=== PATIENT | female | born 1955 | race Caucasian/White ===

== ENCOUNTER → 2020-01-06 10:03 | Outpatient (BNVA) | payer BC, SELFPAY | PROVIDERS: Family Provider Nurse Practitioner Family; PCP Nurse Practitioner Family; Visit Provider Registered Nurse | DX: Z11.59 Encounter for screening for other viral diseases (principal) | CPT/HCPCS: 87635 ==

== ENCOUNTER → 2020-07-03 11:42 | Outpatient (BNVA) | payer OTHER, SELFPAY | PROVIDERS: Family Provider Nurse Practitioner Family; PCP Nurse Practitioner Family; Visit Provider Registered Nurse | DX: J18.9 Pneumonia, unspecified organism (principal); J20.8 Acute bronchitis due to other specified organisms; M79.674 Pain in right toe(s) | CPT/HCPCS: 85025 ==

== ENCOUNTER → 2021-02-26 11:20 | Outpatient (BNVA) | payer OTHER, SELFPAY | PROVIDERS: Family Provider Nurse Practitioner Family; PCP Nurse Practitioner Family; Visit Provider Registered Nurse | DX: Z00.00 Encounter for general adult medical examination without abnormal findings (principal); I10 Essential (primary) hypertension; E66.01 Morbid (severe) obesity due to excess calories | CPT/HCPCS: 80053; 80061; 85025 ==

== ENCOUNTER → 2021-02-28 08:18 | Outpatient (BNVA) | payer OTHER, SELFPAY | PROVIDERS: Family Provider Nurse Practitioner Family; PCP Nurse Practitioner Family; Visit Provider Registered Nurse | DX: R89.9 Unspecified abnormal finding in specimens from other organs, systems and tissues (principal) | CPT/HCPCS: 36416; 82962 ==

== ENCOUNTER → 2021-04-02 08:24 | Outpatient (BNVA) | payer OTHER, SELFPAY | PROVIDERS: Family Provider Nurse Practitioner Family; PCP Nurse Practitioner Family; Visit Provider Surgery | DX: Z20.822 Contact with and (suspected) exposure to COVID-19 (principal); K57.92 Diverticulitis of intestine, part unspecified, without perforation or abscess without bleeding; Z98.890 Other specified postprocedural states | CPT/HCPCS: 87635 ==

== ENCOUNTER 2021-04-05 06:55 | Day surgery (SDC) | payer OTHER, SELFPAY ==
[2021-04-02 13:27] VITALS: BMI 42.0
--- NOTE | 2021-04-05 07:18 | P.ANESASSM_ITS ---
Pre-Anesthetic Assessment Pre-Anesthetic Assessment: Height/Weight: Height 1.57 m Weight 104.326 kg Preop Diagnosis: Screening colonoscopy Proposed Procedure: Operation Date: 04/05/21 07:45 Proposed Procedures p Colonoscop 58585 k57.92(Not Applicable) - Nick Hernandez MD Familial anesthetic complications: None Was Beta Zhane taken within 24 hours: N/A Was Clonidine taken within 24 hours: N/A Social: Social History: No alcohol and No tobacco Exam: Pre-Anes Outpt Exam: alert, oriented x 3, clear to auscultation bilatera lly and regular rate & rhythm Airway: Submandibular: WNL Cervical ROM: WNL MP: 3 Dentition: False History/ROS: No significant history except as noted Pulmonary: Pulmonary: SAVGAE CV/HEM: CV/HEM: None reported Comments: METS = 4 : : None reported Hepatic: Hepatic: None reported GI: GI: None reported Metabolic: Metabolic: Morbid obesity Musc/skel: Musc/skel: None reported Neuropsych: Neuropsych: None reported Anesthetic Plan: ASA status: 2 Anesthesia: General and MAC Other: We discussed MAC anesthesia including the spectrum of anesthesia w/ possible intraop recall of stimuli discomfort/pain. Patient agrees to proceed with MAC anesthesia, all questions answered. Risk of > 500 ml blood loss (7ml/kg in children): No PFSH Anesthesia PFSH: Medical History (Updated 02/26/21 @ 13:03 by ARLET Pascal) Chronic bilateral low back pain Depression Essential hypertension Surgical History History of colon surgery 2009 Hx of appendectomy Hx of hysterectomy 2009 Hx of tonsillectomy Family History Other Cancer Diabetes Data Anesthesia Cardiac Studies: No Data to Display
[2021-04-05 07:29] VITALS: BP 137/84; PULSE 99; RESP 18; TEMP 36.3; O2SAT 94
--- NOTE | 2021-04-05 07:37 | P.HP_ITS ---
Same Day Surgery H&P Indication for Procedure/HPI DATE OF PROCEDURE: April 05, 2021 CHIEF COMPLAINT/INDICATIONFOR SURGICAL PROCEDURE: Screening PREOP DIAGNOSIS: Screening colonoscopy PLANNED PROCEDRUE: Operation Date: 04/05/21 07:45 Proposed Procedures p Colonoscop 31309 k57.92(Not Applicable) - Nick Hernandez MD 01/25/2021 Ms. Rubio is a pleasant 65 years old female patient with a current weight of 237 pounds and BMI 45. Patient is referred to my practice for screening colonoscopy. 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 Last colonoscopy was done back in 2009 and there are no history of colon cancer or polyps or bleeding per rectum. Patient reports to me that before 2 weeks she was diagnosed clinically by an acute episode of diverticulitis and was placed on antibiotics. Per her primary care provider Also patient reports to me that she had hernia developed after her laparotomy. And she would like it fixed at some point. Interim history 04/05/2021 Patient comes today for screening colonoscopy ROS All systems have been reviewed negative except as per the above or per problem list Medications/Allergies* Allergies/Adverse Reactions Allergy/AdvReac Type Severity Reaction Status Date / Time codeine Allergy Unknown Verified 04/05/21 07:38 doxycycline Allergy Unknown Verified 04/05/21 07:38 Pertinent History/Comorbid Conditions* Medical History (Updated 02/26/21 @ 13:03 by ARLET Pascal) Chronic bilateral low back pain Depression Essential hypertension Surgical History (Updated 01/08/21 @ 15:14 by ARLET Pascal) History of colon surgery 2009 Hx of appendectomy Hx of hysterectomy 2010 Hx of tonsillectomy Family History (Updated 10/12/19 @ 09:59 by Kyle Farley LPN) Diabetes Cancer Pertinent Exam Findings alert, oriented x 3, regular rate & rhythm and procedure specific exam findings (Abdominal examination nontender nondistended soft) Pertinent Data PERTINENT DATA: Midline scar with stable ventral incisional hernia Recommendations Surgery/Procedure today Other Plans: Plan of care; After thorough history and physical examination and reviewing the chart, plan to perform screening colonoscopy. I discussed with the patient in details the risks,benefits,alternatives and indications.The risk of aspiration, bleeding, soft tissue injury, perforation of the colon and other potential concomitant complications were explained to the patient in details,also the potential need for Laproscoy/Laparotomy to repair any related complications including but not limited to colectomy and or Closotomy.The patient understood this well and did agree to proceed. Rationale was carefully and clearly discussed with the patient.Appropriate informed consent have been reviewed and signed All questions have been answered and all concerns have been addressed to patient's satisfaction. Verbal and written Instructions were given to the patient for colonoscopy prep Coding Level of Care Code Acute Chief Nuclear Medicine Technologist for Jose F Mtz
[2021-04-05] MEDS: sodium chloride 0.9% 1,000 ML 30 ML IV (07:42)
[2021-04-05 08:21] VITALS: BP 128/85; PULSE 92; RESP 18; TEMP 37.1; O2SAT 93
[2021-04-05 08:30] VITALS: BP 123/73; PULSE 89; RESP 16; O2SAT 91
== END 2021-04-05 08:46 | disposition home or self-care (01) ==
PROVIDERS: PCP Nurse Practitioner Family; Visit Provider Surgery
PROC: 0DJD8ZZ Inspection of Lower Intestinal Tract, Via Natural or Artificial Opening Endoscopic (ICD-10-PCS; CPT 45378; principal; 2021-04-05 07:45)
DX: Z12.11 Encounter for screening for malignant neoplasm of colon (principal); K57.30 Diverticulosis of large intestine without perforation or abscess without bleeding; F32.9 Major depressive disorder, single episode, unspecified; I10 Essential (primary) hypertension; Z83.3 Family history of diabetes mellitus; E66.01 Morbid (severe) obesity due to excess calories; Z68.41 Body mass index [BMI] 40.0-44.9, adult
CPT/HCPCS: 45378; J2704; J7030

== ENCOUNTER 2021-05-22 08:12 | Outpatient (CLI) | payer OTHER, SELFPAY ==
--- NOTE | 2021-05-22 08:00 | MM_ITS ---
WS: [id number] BILATERAL DIGITAL SCREENING MAMMOGRAPHY WITH CAD CLINICAL INFORMATION: Z12.31 - Encounter for screening mammogram for malignant ... HISTORY: Screening mammogram. No current complaints. COMPARISON: None. TECHNIQUE: Bilateral CC and MLO views. FINDINGS: Scattered fibroglandular densities bilaterally. Nonspecific bilaterally asymmetric densities along th e posterior nipple line RIGHT breast measuring 9 mm and near the areola LEFT breast measuring 9 mm. L eft-sided lesion best seen on the cc view. Recommend further evaluation with diagnostic mammography a nd ultrasound. Outside comparisons would be helpful in comparison. MM/[place] [id number] IMPRESSION: BI-RADS: 0-Incomplete: Need additional imaging evaluation FOLLOW UP: Need Additional Imaging Recommend bilateral diagnostic mammography and ultrasound for further evaluatio n.
== END 2021-05-22 08:13 | disposition home or self-care (01) ==
LOC: RADSHAW 08:17
PROVIDERS: PCP Registered Nurse; Visit Provider Registered Nurse
DX: Z12.31 Encounter for screening mammogram for malignant neoplasm of breast (principal)
CPT/HCPCS: 77067

== ENCOUNTER → 2021-12-18 09:46 | Outpatient (BNVA) | payer OTHER, SELFPAY | PROVIDERS: PCP Registered Nurse; Visit Provider Student in an Organized Health Care Education/Training Program | DX: M94.262 Chondromalacia, left knee (principal) | CPT/HCPCS: 73560; 73565 ==

== ENCOUNTER → 2022-03-26 08:52 | Outpatient (BNVA) | payer MEDICARE, SELFPAY | PROVIDERS: PCP Registered Nurse; Visit Provider Registered Nurse | DX: I10 Essential (primary) hypertension (principal); R60.0 Localized edema; R73.01 Impaired fasting glucose | CPT/HCPCS: 80053; 83036; 83880; 85025 ==

== ENCOUNTER 2022-04-11 09:39 | Emergency (ER) | payer MEDICARE, SELFPAY ==
[2022-04-11 09:49] VITALS: BP 147/75; PULSE 95; TEMP 36.8; O2SAT 89; BMI 43.1
--- NOTE | 2022-04-11 09:54 | XRR_ITS ---
PROCEDURE INFORMATION: Exam: XR Chest Exam date and time: 04/11/2022 10:25 AM Age: 66 years old Clinical indication: Shortness of breath TECHNIQUE: Imaging protocol: Radiologic exam of the chest. Views: 2 views. COMPARISON: No relevant prior studies available. FINDINGS: Lungs: Mildly increased ground-glass density in the left lung base. The remainder of the lung parenchyma is clear. Pleural spaces: No pneumothorax. No pleural effusion. Heart/Mediastinum: The cardiomediastinal silhouette is within normal limits. Bones/joints: Unremarkable. XR/XR chest 2V* [id number] IMPRESSION: Mildly increased ground-glass density in the left lung base. Findings could be consistent with mild airspace disease, atelectasis, or prominent pericardiac fat. The remainder of the lung parenchyma is clear.
--- NOTE | 2022-04-11 10:03 | ECG_ITS ---
[facility] Test Date: 2022-04-11 Pat Name: Millicent Rubio Department: Room: Gender: Female Insulation Estimator: : 1955 Requested By: Roxana Frederick Order Number: [id number] Gray MD: Jim Dupree M.D. Measurements Intervals [place] Rate: 92 P: 55 ID: [id number] QRS: 60 QRSD: 90 T: 60 QT: 327 QTc: 405 Interpretive Statements SINUS RHYTHM LOW QRS VOLTAGE IN PRECORDIAL LEADS [QRS DEFLECTION < 1.0 mV IN CHEST LEADS] No previous ECG available for comparison Electronically Signed On 04-11-2022 14:42:32 FREIGHT FLOW SALES LEADER by Jim Dupree M.D. [id number]
[2022-04-11 10:18] LABS: Basophils # 0.1 10^3/uL (0.0-0.1); Basophils % 0.5 %; Eosinophils # 0.2 10^3/uL (0.0-0.8); Eosinophils % 2.4 %; Hematocrit 44.4 % (37.0-47.0); Hemoglobin 13.7 g/dL (11.5-15.3); Lymphocytes # 1.5 10^3/uL (0.8-4.8); Lymphocytes % 14.7 %; Mean Corpuscular HGB Conc 30.9 g/dL (30.0-36.0); Mean Corpuscular Hemoglobin 30.4 pg (28.0-34.0); Mean Corpuscular Volume 98.7 fl (81-99); Monocytes # 0.6 10^3/uL (0.2-0.9); Monocytes % 5.8 %; Neutrophils # 7.56 10^3/uL (1.8-7.7); Neutrophils % 76.3 %; Nucleated Red Blood Cells % 0 %; Platelet Count 348 10^3/cmm (130-400); Red Cell Distribution Width 13.2 % (12.1-15.1); White Blood Count 9.9 10^3/uL (4.0-10.0)
[2022-04-11 10:50] VITALS: BP 143/65; PULSE 93; RESP 18; O2SAT 92
[2022-04-11 10:51] LABS: Alanine Aminotransferase 28 U/L (0-33); Albumin Level 4.4 g/dL (3.5-5.2); Alkaline Phosphatase 89 U/L (35-105); Aspartate Amino Transferase 23 U/L (0-32); Blood Urea Nitrogen 15 mg/dL (8-23); Calcium 9.3 mg/dL (8.5-10.5); Carbon Dioxide 29 mmol/L (22-29); Chloride 100 mmol/L (98-107); Globulin 3.1 g/dL (1.3-4.6); Glomerular Filtration Rate 124.2 mL/min (90-130); Glucose 102 mg/dL (65-115); NT Pro B Type Natriuretic Pept 28 pg/mL (0-125); Osmolality Calculated 289 mOsm/kg (285-295); Sodium 139 mmol/L (136-145); Total Bilirubin 0.3 mg/dL (0.15-1.2); Total Protein 7.5 g/dL (6.6-8.7)
--- NOTE | 2022-04-11 10:59 | ED_ITS ---
HPI - General Adult General: Chief complaint: General Medical Stated complaint: swollen legs Time Seen by Provider: 04/11/22 09:54 Source: patient History of Present Illness: 66 yo female presents emergency room complaining of shortness of breath. She also is complaining of a headache. She denies any chest pain no fever sweats or chills. No abdominal pain no vomiting. Onset (ago): minute(s) Location: head Severity: mild Quality: burning Associated symptoms: Deny chest pain, dyspnea, malaise, nausea, rash or vomiting Review of Systems Const: Denies: fever(s), chills, body aches, change in appetite, fatigue or malaise ENMT: Denies: throat pain, ear or mastoid pain, nasal discharge or nasal congestion Card: Denies: chest pain, edema, dyspnea on exertion or orthopnea Resp: Denies: dyspnea, productive cough or non-productive cough GI: Denies: abdominal pain, nausea, vomiting, hematemesis, coffee ground emesis, diarrhea, constipation, bloating, hematochezia or melena : Denies: flank pain, difficulty voiding, dysuria, urinary frequency or urinary urgency Skin/Breast: Denies: rash or pruritus PFSH ED PFSH: Medical History Chondromalacia, left knee Chronic bilateral low back pain Chronic diarrhea Depression Essential hypertension Surgical History History of colon surgery 2009 Hx of appendectomy Hx of hysterectomy 2010 Hx of tonsillectomy Family History Other Cancer Diabetes Social History Smoking and tobacco status: former smoker Alcohol intake: never Adopted: No Caregiver/support person: No Lives independently: No Sexually active: Yes Current gender identity: Female Physical Exam Const: GENERAL APPEARANCE: cooperative and comfortable ORIENTATION/CONSCIOUSNESS: Yes awake, Yes oriented to person, Yes oriented to place and Yes oriented to time HENMT: COMMON NORMALS: normocephalic, atraumatic and hearing grossly normal bilaterally HEAD & SCALP: normocephalic and atraumatic Resp: COMMON NORMALS: normal respiratory effort, No retractions, No use of a ccessory muscles and clear to auscultation bilaterally AUSCULTATION: clear to auscultation bilaterally Cardio: COMMON NORMALS: regular rate, regular rhythm and No murmurs present (Cardio) RATE: regular rate RHYTHM: regular rhythm GI: COMMON NORMALS: Soft to palpation and No hepatosplenomegaly present AUSCULTATION: Yes normoactive bowel sounds PALPATION: Yes Soft to palpation, No Tenderness to palpation present (GI), No Guarding due to palpation present (GI) and Yes No hepatosplenomegaly present Extremity: COMMON NORMALS: normal to inspection and capillary refill normal GENERAL: Yes edema Neuro: SENSORIUM/ORIENTATION: Yes oriented to person, Yes oriented to place and Yes oriented to time Skin: COMMON NORMALS: no rashes or lesions noted GENERAL SKIN EXAM: no rashes or lesions noted Course Vital Signs: Vital signs: Vital Signs Temperature 98.2 F 04/11/22 09:49 Pulse Rate 91 04/11/22 11:57 Respiratory Rate 16 04/11/22 11:57 Blood Pressure 147/89 04/11/22 11:57 Pulse Oximetry 94 04/11/22 11:57 Oxygen Delivery Me thod 04/11/22 09:49 MDM - General Adult Medical Decision Making Improved with diuresis will increase Lasix 80 mg daily double up on potassium during that time as well. Recommend follow-up with primary care within the next 3 to 5 days. Also need follow-up chest x-ray. Finally discussed with the patient that we noted that when she dozed off your oxygen saturations decreased to improved immediately when she woke. Suspect she does have sleep apnea and recommend that she follow-up with have testing done is that we will affect her other conditions as well. Lab Data 04/11/22 10:08 04/11/22 10:08 Radiology Impressions Chest X-Ray 04/11/22 09:54 IMPRESSION: Mildly increased ground-glass density in the left lung base. Findings could be consistent with mild airspace disease, atelectasis, or prominent pericardiac fat. The remainder of the lung parenchyma is clear. Laboratory Results WBC 9.9 10^3/uL (4.0-10.0) 04/11/22 10:08 RBC 4.50 10^6/uL (4.1-5.3) 04/11/22 10:08 Hgb 13.7 g/dL (11.5-15.3) 04/11/22 10:08 Hct 44.4 % (37.0-47.0) 04/11/22 10:08 MCV 98.7 fl (81-99) 04/11/22 10:08 MCH 30.4 pg (28.0-34.0) 04/11/22 10:08 MCHC 30.9 g/dL (30.0-36.0) 04/11/22 10:08 RDW 13.2 % (12.1-15.1) 04/11/22 10:08 Plt Count 348 10^3/cmm (130-400) 04/11/22 10:08 MPV 10.0 fL (7.4-10.4) 04/11/22 10:08 Neut % (Auto) 76.3 % 04/11/22 10:08 Lymph % (Auto) 14.7 % 04/11/22 10:08 [place] % (Auto) 5.8 % 04/11/22 10:08 Eos % (Auto) 2.4 % 04/11/22 10:08 Baso % (Auto) 0.5 % 04/11/22 10:08 Neut # (Auto) 7.56 10^3/uL (1.8-7.7) 04/11/22 10:08 Lymph # (Auto) 1.5 10^3/uL (0.8-4.8) 04/11/22 10:08 [place] # (Auto) 0.6 10^3/uL (0.2-0.9) 04/11/22 10:08 Eos # (Auto) 0.2 10^3/uL (0.0-0.8) 04/11/22 10:08 Baso # (Auto) 0.1 10^3/uL (0.0-0.1) 04/11/22 10:08 Nucleated RBC % (auto) 0 % 04/11/22 10:08 Nucleated RBCs # 0.0 /100WBC 04/11/22 10:08 Sodium 139 mmol/L (136-145) 04/11/22 10:08 Potassium 4.4 mmol/L (3.5-5.1) 04/11/22 10:08 Chloride 100 mmol/L (98-107) 04/11/22 10:08 Carbon Dioxide 29 mmol/L (22-29) 04/11/22 10:08 Anion Gap 14.4 (5-19) 04/11/22 10:08 BUN 15 mg/dL (8-23) 04/11/22 10:08 Creatinine 0.5 mg/dL (0.5-0.9) 04/11/22 10:08 GFR Calculation 124.2 mL/min (90-130) 04/11/22 10:08 Glucose 102 mg/dL (65-115) 04/11/22 10:08 Calculated Osmolality 289 mOsm/kg (285-295) 04/11/22 10:08 Calcium 9.3 mg/dL (8.5-10.5) 04/11/22 10:08 Total Bilirubin 0.3 mg/dL (0.15-1.2) 04/11/22 10:08 AST 23 U/L (0-32) 04/11/22 10:08 ALT 28 U/L (0-33) 04/11/22 10:08 Alkaline Phosphatase 89 U/L (35-105) 04/11/22 10:08 Troponin T Gen 5 ng/L 6 ng/L (0-10) 04/11/22 10:08 NT-Pro-B Natriuret Pep 28 pg/mL (0-125) 04/11/22 10:08 Total Protein 7.5 g/dL (6.6-8.7) 04/11/22 10:08 Albumin 4.4 g/dL (3.5-5.2) 04/11/22 10:08 Globulin 3.1 g/dL (1.3-4.6) 04/11/22 10:08 Discharge Plan Discharge Patient Disposition: Home Clinical Impression: Leg edema Condition: Stable Prescriptions: Discontinued furosemide 40 mg tablet 40 mg PO QAM No Action albuterol sulfate [ProAir HFA] 90 mcg/actuation HFA aerosol inhaler 1 inh INHALATION QID PRN (Reason: shortness of breath or wheezing) Qty: 1 1RF wfjvjgxnei-eiazjmufhsfid-qxoa [Esgic] 50-325-40 mg capsule 1 cap PO DAILY PRN (Reason: pain) 30 Days Qty: 20 2RF Rx Instructions: will not need until on or after 04/17 tramadol 50 mg tablet 50 mg PO Q8H PRN (Reason: pain) 30 Days Qty: 40 1RF furosemide 40 mg tablet 40 mg PO QAM Advair HFA 115-21 mcg/actuation HFA aerosol inhaler 2 puff inhalation BID Qty: 12 0RF multivitamin Tablet 1 tab PO DAILY PRN (Reason: unknown) Vitamin D3 25 mcg (1,000 unit) Capsule 2,000 unit PO DAILY magnesium oxide 400 mg magnesium Tablet 400 mg PO DAILY potassium chloride 10 mEq tablet extended release 10 meq PO QAM omeprazole 40 mg capsule,delayed release(DR/EC) 40 mg PO DAILY PRN (Reason: Heartburn) telmisartan 40 mg tablet 40 mg PO QAM sertraline 25 mg tablet 25 mg PO BEDTIME Discharge Orders: Discharge ED (Routine); Ordered 04/11/22 Ordered By: Gianfranco Hayward Referrals: Mi Garcia, INFORMATICS PHYSICIAN [Primary Care Provider] - Discharge Diet: Usual diet Discharge Activity: Increase activity as tolerated Patient Instructions: Opioid Safety, Pain Management Activity Restrictions/Additional Instructions: You were seen today for chronic swelling in your legs. Recommend that you increase your Lasix to 80 mg daily for the next 3 days follow-up with your primary care doctor to recheck kidney function and electrolytes in 4 to 5 days. Increase your potassium to 1 tablet twice daily during those 3 days of the increase Lasix. Chest x-ray today showed some mild increased markings at the base of the left lung. These are of uncertain significance and we will refer you to the rn clinical review to further evaluate. Would also recommend that you discuss having sleep apnea testing done with your primary care doctor if you have not had this done previously. Coding Level of Care Code ED Molded Candles Wicker for Jose F Mtz
[2022-04-11 11:00] VITALS: BP 148/81; PULSE 96; O2SAT 93
[2022-04-11 11:11] LABS: Anion Gap 14.4 (5-19); Potassium 4.4 mmol/L (3.5-5.1)
[2022-04-11 11:27] LABS: Troponin T (5th) Once 6 ng/L (0-10)
[2022-04-11 11:50] VITALS: BP 143/56; PULSE 87; RESP 16; O2SAT 96
[2022-04-11 11:57] VITALS: BP 147/89; PULSE 91; RESP 16; O2SAT 94
--- NOTE | 2022-04-11 14:00 | DCPLANNER ---
Addendum entered by Mirela Plaza 07/24/22 11:24: Patient had a follow up appointment scheduled with Dr. Shultz at pulmonology - patient did attend appointment. Addendum entered by Mirela Plaza 04/18/22 13:43: Patient has a follow up appointment scheduled for Friday, July 22, 2022 at 11:[address] Bangura, pulmonology. Clinic will call patient with appointment information. Original Note: environmental field office manager had message to schedule a follow up appointment for patient with pulmonology. environmental field office manager sent patients information to the front office staff at [facility]. Patients information will be printed and reviewed. Clinic will call patient with appointment information.
== END 2022-04-11 12:00 | disposition home or self-care (01) ==
PROVIDERS: Nurse Practitioner Family; Emergency Provider Family Medicine; PCP Registered Nurse
DX: R60.0 Localized edema (principal); I10 Essential (primary) hypertension; Z87.891 Personal history of nicotine dependence
CPT/HCPCS: 71046; 80053; 83880; 84484; 85025; 93005; 99285

== ENCOUNTER 2022-05-13 07:18 | Outpatient (CLI) | payer MEDICARE, SELFPAY ==
[2022-05-13] MEDS: iohexol 350 mg/mL 500 mL Btl (per mL) IV (07:33)
--- NOTE | 2022-05-13 08:00 | CT_ITS ---
WS: [id number] CT CHEST TECHNIQUE: Contrast enhanced CT of the chest with coronal and sagittal reformatted images. CLINICAL INFORMATION: R60.0 - Localized edema COMPARISON: None. DLP: 680.[address] scans at [facility] use at least one of these dose optimization techniques: automated e xposure control; mA and/or kV adjustment per patient size (includes targeted exams where dose is matc hed to clinical indication); or iterative reconstruction. FINDINGS: No acute pulmonary infiltrates. No focal pneumonia or pleural fluid. No mediastinal or jimmie r lymphadenopathy. Mild thoracic curve. Mild thoracic kyphosis. Hypertrophic changes thoracic spine. Normal caliber thoracic aorta. Normal caliber descending thoracic aorta. Aortic calcification. Slight ly prominent pulmonary arteries can be seen with pulmonary arterial hypertension. Mild cardiomegaly. No mediastinal or hilar lymphadenopathy. Normal GE junction. Partially visualized diffuse fatty infiltration liver. Partially visualized 12 mm LEFT renal cyst. Th ickening of the LEFT adrenal gland. RIGHT adrenal gland is normal. No axillary lymphadenopathy. CT/CT chest w con* [id number] IMPRESSION: 1. Previously described groundglass opacities in the LEFT lower lobe have reso lved. 2. No acute pulmonary infiltrates. No focal pneumonia or pleural fluid. 3. Mild chronic emphysematous changes. Mild cardiomegaly. 4. Diffuse fatty infiltration liver. 5. Partially visualized LEFT renal cyst measuring 12 mm.
== END 2022-05-13 07:19 | disposition home or self-care (01) ==
LOC: RAD 07:29
PROVIDERS: PCP Registered Nurse; Visit Provider Registered Nurse
DX: R60.0 Localized edema (principal); J98.4 Other disorders of lung; I51.7 Cardiomegaly; K76.0 Fatty (change of) liver, not elsewhere classified; N28.1 Cyst of kidney, acquired; J43.9 Emphysema, unspecified
CPT/HCPCS: 71260; Q9967

== ENCOUNTER → 2022-05-27 07:47 | Outpatient (BNVA) | payer MEDICARE, SELFPAY | PROVIDERS: PCP Registered Nurse; Visit Provider Student in an Organized Health Care Education/Training Program | DX: M94.262 Chondromalacia, left knee (principal); S83.412A Sprain of medial collateral ligament of left knee, initial encounter; X50.1XXA Overexertion from prolonged static or awkward postures, initial encounter | CPT/HCPCS: 20610; 99214; J3301 ==

== ENCOUNTER → 2022-05-27 09:29 | Outpatient (BNVA) | payer MEDICARE, SELFPAY | PROVIDERS: PCP Registered Nurse; Visit Provider Internal Medicine Pulmonary Disease | DX: Z68.41 Body mass index [BMI] 40.0-44.9, adult (principal); Z86.16 Personal history of COVID-19; R06.09 Other forms of dyspnea; R60.0 Localized edema; Z87.891 Personal history of nicotine dependence; E66.01 Morbid (severe) obesity due to excess calories; G47.30 Sleep apnea, unspecified; Z99.81 Dependence on supplemental oxygen | CPT/HCPCS: 99204 ==

== ENCOUNTER 2022-06-12 06:57 | Outpatient (CLI) | payer MEDICARE, SELFPAY ==
--- NOTE | 2022-06-12 07:15 | US_ITS ---
WS: [id number] RENAL ULTRASOUND REASON FOR EXAM: N28.1 - Cyst of kidney, acquired COMPARISON: None available. ORDER DATE: 06/12/2022 7:05 AM TECHNIQUE: Grayscale and Doppler ultrasound examination of the kidneys. FINDINGS: Right kidney: Right kidney measures 10.8 cm x 4.0 cm x 4.8 cm. 12.4 mm Left kidney: Left kidney measures 9.8 cm x 6.0 cm x 4.2 cm. 12.4 mm There is a 7 mm. Left renal cyst. Normal vascularity demonstrated within each kidney. Bladder decompressed. US/US renal BI* [id number] IMPRESSION: Small left renal cyst otherwise unremarkable.
== END 2022-06-12 06:58 | disposition home or self-care (01) ==
LOC: RAD 07:00
PROVIDERS: PCP Registered Nurse; Visit Provider Registered Nurse
DX: N28.1 Cyst of kidney, acquired (principal)
CPT/HCPCS: 76770

== ENCOUNTER 2022-06-19 08:03 | Outpatient (CLI) | payer MEDICARE, SELFPAY ==
[2022-06-19 08:21] VITALS: PULSE 77; RESP 18; O2SAT 98
[2022-06-19] MEDS: albuterol 2.5 mg/3 mL Neb INHALATION (08:21)
[2022-06-19 08:26] VITALS: PULSE 80
[2022-06-19 08:45] VITALS: BP 131/82; BP 135/82
== END 2022-06-19 08:04 | disposition home or self-care (01) ==
LOC: RT 08:07
PROVIDERS: PCP Registered Nurse; Visit Provider Internal Medicine Pulmonary Disease
DX: R06.00 Dyspnea, unspecified (principal); B94.8 Sequelae of other specified infectious and parasitic diseases
CPT/HCPCS: 94060; 94618; 94726; 94729; J7613

== ENCOUNTER 2022-06-25 09:49 | Outpatient (CLI) | payer MEDICARE, SELFPAY ==
--- NOTE | 2022-06-25 10:00 | USCV_ITS ---
Millicent Rubio Age: 67 Gender: F : 1955 Exam Date: 06/25/2022 10:03 Ordering Phys: Xander Bangura MD Technologist: Exam Location: [facility] – [place] Indication: pedal edema BP: 125 / 74 HR: 93 Rhythm: Sinus Technical Quality: Adequate MEASUREMENTS (Male / Female) Normal Values 2D ECHO LV Diastolic Diameter PLAX 4.7 cm 4.2 - 5.9 / 3.9 - 5.3 cm LV Systolic Diameter PLAX 2.8 cm IVS Diastolic Thickness 1.3 cm 0.6 - 1.0 / 0.6 - 0.9 cm IVS Systolic Thickness 1.7 cm LVPW Diastolic Thickness 1.0 cm 0.6 - 1.0 / 0.6 - 0.9 cm LVPW Systolic Thickness 1.7 cm LVOT Diameter 2.1 cm LV Ejection Fraction 2D Teich 70.4 % LV Ejection Fraction MOD 2C 70.8 % LV Ejection Fraction 2C AL 72.7 % LA Diameter 3.9 cm Aorta at Sinotubular Diameter 2.5 cm IVC Diameter 2.3 cm M-MODE Aortic Annulus Diameter 3.7 cm LA Ao Ratio MM 1.1 MV E Point Septal Separation 1.1 cm DOPPLER AV Peak Velocity 191.0 cm/s LVOT Peak Velocity 135.0 cm/s AV Area Cont Eq vti 2.3 cm squared AV Area Cont Eq pk 2.4 cm squared MV Area PHT 5.0 cm squared Mitral E to A Ratio 0.9 MV E' Velocity 42.5 cm/s Mitral E to MV E' Ratio 3.3 Mitral E to LV E' Lateral Ratio 6.0 Mitral E to LV E' Septal Ratio 2.3 TR Peak Velocity 283.3 cm/s TR Peak Gradient 32.1 mmHg TV Peak E Velocity 98.0 cm/s Right Atrial Pressure 3.0 mmHg Pulmonary Artery Systolic Pressu 35.1 mmHg RV Acceleration Time 0.1 s FINDINGS Left Ventricle Normal left ventricular size and systolic function, EF 75 %. No regional wall motion abnormalities. Grade I/IV diastolic dysfunction (abnormal relaxation filling pattern), normal to mildly elevated filling pressures. Right Ventricle The right ventricle is normal in size and function. Right Atrium The right atrium is normal in size. Left Atrium The left atrium is normal in size. Mitral Valve Thickening of the posterior mitral leaflet.mild mitral annular calcification. Mild mitral valve regurgitation. Aortic Valve Trace aortic valve regurgitation. Thickened aortic valve. Tricuspid Valve No gross abnormalities noted Pulmonic Valve No gross abnormalities noted Pericardium Normal pericardium without effusion. Aorta Normal ascending aorta dimension. IVC The inferior vena cava appears normal. CONCLUSIONS Normal left ventricular size and systolic function, EF 75 %. No regional wall motion abnormalities. Grade I/IV diastolic dysfunction (abnormal relaxation filling pattern), normal to mildly elevated filling pressures. Thickening of the posterior mitral leaflet.mild mitral annular calcification. Mild mitral valve regurgitation. Trace aortic valve regurgitation. Thickened aortic valve. There is no pericardial effusion. There are no intracardiac masses. Compared to the previous study from 06/21/2016, there may not be a significant change Dr Vincent Reinoso MD FACC (Electronically Signed) Final Date: 25 June 2022 22:22 S
== END 2022-06-25 09:50 | disposition home or self-care (01) ==
LOC: RAD 09:52
PROVIDERS: PCP Registered Nurse; Visit Provider Internal Medicine Pulmonary Disease
DX: R06.09 Other forms of dyspnea (principal); R60.0 Localized edema; Z87.891 Personal history of nicotine dependence; I51.9 Heart disease, unspecified; I34.81 Nonrheumatic mitral (valve) annulus calcification; I34.0 Nonrheumatic mitral (valve) insufficiency
CPT/HCPCS: 93306; 99204

== ENCOUNTER 2022-07-19 09:03 | Outpatient (CLI) | payer MEDICARE, SELFPAY ==
--- NOTE | 2022-07-19 09:30 | MR_ITS ---
WS: [id number] MRI LEFT KNEE HISTORY: Twisting injury 3 months ago. Medial pain. COMPARISON: None available. Anterior cruciate ligament: Intact. Posterior cruciate ligament: Intact. Medial collateral ligament: Increased fluid on both sides of the MCL. There is mild displacement of t he MCL from the joint line by an extruded meniscus. No complete MCL tear. Posterior lateral corner structures: Intact. Medial menisci: Partially extruded meniscus from the joint line.. There is also intrasubstance degene ration. Lateral meniscus: Intact. Normal signal, size and shape. Extensor mechanism: Normal quadriceps tendon. Mild multifocal patellar tendinopathy. Fluid and soft tissue: Moderate joint effusion. There is also additional small amount of edema surrou nding the knee. No Pak's cyst. Osseous and articular structures: Patellofemoral compartment: Very mild narrowing of the patellofemoral joint space. Mild thinning of t he cartilage at the patellar eminence and over the lateral and medial facets. No marrow edema. No fra cture. Incomplete visualization of the medial patellar retinaculum as it joins with the MCL. Medial compartment: Moderate narrowing of the medial compartment. Moderate chondromalacia. Significan t loss of cartilage and there is additional marrow edema involving the femoral condyle and tibial gianna teau. Lateral compartment: Very mild narrowing and mild thinning and fissuring of the cartilage. MR/MR knee LT wo con* [id number] IMPRESSION: 1. Moderate internal derangement involving the medial compartment. 2. Partial extrusion of the medial meniscus from the joint line with displacem ent of the MCL. Mild MCL sprain. 3. Marrow edema medial femoral condyle and tibial plateau with loss of cartila ge. 4. Suspect tear involving the free edge posterior horn medial meniscus along w ith intrasubstance degeneration. 5. Moderate-sized joint effusion. 6. Mild chondromalacia patella. 7. Suspect partial tear of the medial patellar retinaculum as it joins with the MCL. Discontinuous patellar retinaculum.
== END 2022-07-19 09:04 ==
PROVIDERS: PCP Registered Nurse; Visit Provider Student in an Organized Health Care Education/Training Program
DX: M25.362 Other instability, left knee (principal); M94.262 Chondromalacia, left knee
CPT/HCPCS: 73721; 99213

== ENCOUNTER → 2022-07-29 08:49 | Outpatient (BNVA) | payer MEDICARE, SELFPAY | PROVIDERS: PCP Registered Nurse; Visit Provider Student in an Organized Health Care Education/Training Program | DX: M94.262 Chondromalacia, left knee (principal); M23.205 Derangement of unspecified medial meniscus due to old tear or injury, unspecified knee | CPT/HCPCS: 36415; 73560; 73565; 80048; 85025; 99214 ==

== ENCOUNTER → 2022-07-31 13:03 | Outpatient (BNVA) | payer MEDICARE, SELFPAY | PROVIDERS: PCP Registered Nurse; Visit Provider Internal Medicine Pulmonary Disease | DX: Z01.811 Encounter for preprocedural respiratory examination (principal); R06.09 Other forms of dyspnea; Z87.891 Personal history of nicotine dependence; E66.01 Morbid (severe) obesity due to excess calories; R22.43 Localized swelling, mass and lump, lower limb, bilateral; G47.30 Sleep apnea, unspecified; Z99.81 Dependence on supplemental oxygen; Z68.41 Body mass index [BMI] 40.0-44.9, adult; Z86.16 Personal history of COVID-19 | CPT/HCPCS: 99214 ==

== ENCOUNTER 2022-08-06 08:20 | Day surgery (SDC) | payer MEDICARE, SELFPAY ==
[2022-08-05 10:30] VITALS: BMI 42.6
[2022-08-06] VITALS (9 sets, daily range): BP systolic 116–143; BP diastolic 59–92; PULSE 75–87; RESP 16–18; TEMP 36.2–36.7; O2SAT 92–99
[2022-08-06] MEDS: acetaminophen 1,000 MG/100 ML PIGGYBACK 400 MG IV (09:35)
[2022-08-06] MEDS: ketorolac 30 mg/mL INJ IVP (09:35)
[2022-08-06] MEDS: sodium chloride 0.9% 1,000 ML 30 ML IV (09:36)
--- NOTE | 2022-08-06 09:38 | ANES.PREANE2 ---
Pre-Anesthetic Assessment Height/Weight: Height 1.57 m Weight 105.687 kg Temp Pulse Resp BP Pulse Ox O2 Del Method 97.3 F L 87 18 136/92 92 Nasal Cannula 08/06/22 08:43 08/06/22 08:43 08/06/22 08:43 08/06/22 08:43 08/06/22 08:43 08/06/22 09:13 Preop Diagnosis: Left knee medial meniscus tear Operation Date: 08/06/22 10:05 Proposed Procedures p left knee diagnostic and surgical arthroscopy:67972, M23.205(Left) - Ravinder Hargrove, Familial anesthetic complications: None Was Beta Zhane taken within 24 hours: N/A Was Clonidine taken within 24 hours: N/A Last intake: Intake Last Liquid Date 08/05/22 Last Liquid Time 22:00 Last Solid Date 08/05/22 Last Solid Time 19:30 Social No alcohol and No tobacco Exam alert, oriented x 3, clear to auscultation bilaterally and regular rate & rhythm Airway Mallampati: Class III Dentition: false Pulmonary Chronic Obstructive Pulmonary Disease and Sleep Apnea restrictive lung disease (obesity) obesity hypoventilation - pulmonary physician recommending use of biPAP post extubation 2 L NC continuously CV/HEM Hypertension mild mvr and avr Metabolic Morbid Obesity Anesthetic Plan ASA status: 4 Anesthesia: General Other: patient declining nerve block Risk of > 500 ml blood loss (7ml/kg in children): No Medications/Allergies Home Medications Medication Instructions Recorded Confirmed Last Taken Type albuterol sulfate 90 mcg/actuation 1 inh inhalation QID PRN shortness 10/16/20 08/05/22 05/07/22 Rx aerosol inhaler (ProAir HFA) of breath or wheezing #1 ea coqrrapimp-ldqluwlizjqsh-zeeysqsl 1 cap PO DAILY PRN pain 30 days 03/26/22 08/05/22 08/03/22 Rx 50 mg-325 mg-40 mg capsule (Esgic) #20 caps cholecalciferol (vitamin D3) 25 2,000 unit PO DAILY 04/11/22 08/05/22 08/05/22 History mcg (1,000 unit) capsule (Vitamin D3) magnesium oxide 400 mg PO DAILY 04/11/22 08/05/22 08/05/22 History multivitamin 1 tab PO DAILY PRN unknown 04/11/22 08/05/22 07/30/22 History omeprazole 40 mg capsule,delayed 40 mg PO DAILY PRN Heartburn 04/11/22 08/05/22 08/02/22 History release potassium chloride 10 mEq 10 meq PO QAM 90 days #90 tabs 05/20/22 08/05/22 08/05/22 Rx tablet,extended release bumetanide 1 mg tablet 1 mg PO DAILY 90 days #90 tabs 06/13/22 08/05/22 08/05/22 Rx sertraline 25 mg tablet See Rx Instructions .Route 07/02/22 08/05/22 08/05/22 Rx .COMPLEX #90 tabs telmisartan 40 mg tablet See Rx Instructions .Route 07/02/22 08/05/22 08/05/22 Rx .COMPLEX #90 tabs tramadol 50 mg tablet 50 mg PO Q8H PRN pain 30 days #30 07/10/22 08/05/22 08/05/22 Rx tabs tiotropium 2.5 mcg-olodaterol 2.5 2 puff inhalation DAILY #4 grams 07/31/22 08/05/22 08/05/22 Rx mcg/actuation mist for inhalation (Stiolto Respimat) Allergies Allergy/AdvReac Type Severity Reaction Status Date / Time codeine Allergy Unknown Verified 08/05/22 10:26 doxycycline Allergy Unknown Verified 08/05/22 10:26 Current Medications Generic Name Dose Route Start Last Admin Trade Name Freq PRN Reason Stop Dose Admin Sodium Chloride 1,000 mls @ 30 mls/hr 08/06/22 08:45 08/06/22 09:36 Sodium Chloride 0.9% IV 08/07/22 08:44 30 mls/hr .Q24H LUIS MANUEL Administration PFSH Anesthesia Medical History Aortic valve regurgitation Chondromalacia, left knee Chronic bilateral low back pain Chronic diarrhea Depression Essential hypertension Mitral valve regurgitation Obesity, morbid, BMI 40.0-49.9 Observed sleep apnea On supplemental oxygen therapy Prediabetes Surgical History History of colon surgery 2009 Hx of appendectomy Hx of hysterectomy 2009 Hx of tonsillectomy Family History Other Cancer Diabetes Social History Smoking and tobacco status: former smoker Quit status (tobacco): has quit using tobacco Year quit tobacco: Mar 2009 Former quit date comment: 1ppd x 38 years Alcohol intake: never Substance/Drug Use: never Adopted: No Caregiver/support person: No Lives independently: No Sexually active: Yes Do you think of yourself as: Straight/Heterosexual Current gender identity: Female Data Anesthesia Cardiac Studies: Echocardiogram 06/25/22
--- NOTE | 2022-08-06 10:31 | W.PM.OPSUD ---
Surgery/Procedure H&P Update DATE OF PROCEDURE: August 06, 2022 DATE H&P PERFORMED: 07/29/22 CHANGES TO PREVIOUS DOCUMENTATION: None. Detailed out patient's MRI findings again medial meniscus tear but she does have a component of medial joint space narrowing and arthritic changes. She understands we will address her meniscal pain today and whenever is left she likely is more related to her arthritis. This point time she understands and agrees to proceed with surgical intervention. All questions answered at this time. Plan for left knee diagnostic and surgical arthroscopy with partial medial meniscectomy versus repair. All questions answered. PREOP DIAGNOSIS: Left knee medial meniscus tear PRIMARY INDICATION FOR PROCEDURE: Left knee medial meniscus tear PLANNED PROCEDURE: Operation Date: 08/06/22 10:05 Proposed Procedures p left knee diagnostic and surgical arthroscopy:[id number], M23.205(Left) - Ravinder Hargrove DO
[2022-08-06] MEDS: ceFAZolin 2,000 MG in sodium chloride 0.9% (plus) 50 ML 100 MG IV (10:44)
[2022-08-06] MEDS: lidocaine-epi 2% 20 mL INJ 40 ML INJECTION (11:23)
--- NOTE | 2022-08-06 11:47 | P.OP_ITS ---
Operative Report Date of procedure: August 06, 2022 Pre-op diagnosis: Preop Diagnosis Left knee medial meniscus tear Procedure: Post-op diagnosis: Left knee extensive synovitis Left knee tricompartment chondromalacia Left knee medial and lateral meniscus tears Procedure done: Left knee diagnostic and surgical arthroscopy with partial medial meniscectomy Left knee diagnostic and surgical arthroscopy with partial lateral meniscectomy Left knee diagnostic and surgical arthroscopy with extensive synovectomy of medial, lateral and patellofemoral compartments Left knee diagnostic and surgical arthroscopy with chondroplasty of medial, lateral and patellofemoral compartments Surgeon: Ravinder Hargrove DO Estimated blood loss: 2 Tourniquet: No tourniquet was used IV fluids: See anesthesia record Complications: None Findings: See operative report narrative Condition: stable Disposition: same day Brief History: Patient is a 67-year-old female with left knee pain. Patient has failed conservative treatment who has been worked up for left knee pain in the outpatient setting.? Patient's failed conservative treatment and patient has received corticosteroid injections with only temporary relief and MRI findings consistent wi tear of the medial meniscus. Given patient failed conservative treatment talked in the office about treatment options patient would like to proceed with a left knee diagnostic and surgical arthroscopy. Patient understand the ins and outs of the procedure the risk benefits complication alternatives to treatment options.? Understanding risk of surgery they agree to proceed with surgical intervention.? Patient understand this may not provide patient with complete symptomatic relief of pain as patient does have some underlying arthritis.? Understanding this and patient agree to proceed with surgical intervention all questions answered. MR/MR knee LT wo con* [id number] IMPRESSION: ? 1.? Moderate internal derangement involving the medial compartment. 2.? Partial extrusion of the medial meniscus from the joint line with displacement of the MCL. Mild MCL sprain. 3.? Marrow edema medial femoral condyle and tibial plateau with loss of cartilage. 4.? Suspect tear involving the free edge posterior horn medial meniscus along with intrasubstance degeneration. 5.? Moderate-sized joint effusion. 6.? Mild chondromalacia patella. 7. Suspect partial tear of the medial patellar retinaculum as it joins with the MCL. Discontinuous patellar retinaculum. ? ? Procedure: Patient seen and evaluated in the preoperative holding area.? Consent was reviewed and signed with patient.? Correct extremity was then marked.? Patient seen evaluated Anesthesia Department once cleared for surgery patient was taken back to the operative suite.? Patient was transported onto the OR table in supine position.? All bony prominences well-padded patient was appropriate secured to the bed.? Once appropriately anesthetized a nonsterile tourniquet was applied to the left thigh.? The left lower extremity was then prepped and draped in standard orthopedic fashion.? Final timeout performed.? Patient received appropriate preoperative antibiotics. Patient received local anesthetic of lidocaine with epinephrine into the joint as well as around the portal sites.? No tourniquet was inflated A standard 2 portal vertical incision diagnostic and surgical arthroscopy of the left knee was performed in standard fashion.? Small stab incision made in the inferolateral portal introduced trocar and arthroscope into the suprapatellar pouch.? Suprapatellar pouch was subsequently visualized and found to have significant synovitis but no loose bodies.? Patient had noticeable significant inflamed infrapatellar fat pad and thickening hypertrophic within the patellofemoral compartment. ?The medial gutter was free of loose bodies I then introduced the arthroscope into the medial compartment.? Within the medial compartment I then established my inferior medial working portal utilizing spinal needle outside in technique.? Once established I then visualized our articular cartilage of the medial compartment with a valgus stress.? Patient was found to have grade 3?4 chondromalacia throughout the medial compartment.? Next I inspected the m eniscus.? With an arthroscopic probe was utilized to visual? all aspects of the meniscus.? Meniscal root was found to be intact.? Meniscus was found to be torn at the body to posterior horn junction. I then subsequently introduced a basket forceps as well as arthroscopic shaver to perform a partial medial meniscectomy to stable meniscal tissue and then utilized a thermal wand to anneal the edges. ext I then performed a synovectomy of the medial compartment. Given patient's chondromalacia there was areas of unstable articular cartilage and I subsequently performed a chondroplasty with arthroscopic shaver and thermal wand. This completed medial compartment work. Next a introduced the arthroscope to the intercondylar notch.? PCL and ACL were intact. patient had significant thickening of the infrapatellar fat pad spanning into the medial and lateral compartments.? I then performed an extensive synovectomy with the arthroscopic shaver of the patellofemoral medial and lateral compartments as well as the intercondylar notch. Advance the scope into the retrocruciate space and no loose bodies were found. Next I introduced the arthroscope into the lateral compartment the lateral manny rtment was found to have grade?2?3 chondromalacia.??Lateral meniscus was found to have small tear of the lateral meniscus at the body horn junction I then subsequently produced arthroscopic shaver and performed a partial lateral meniscectomy and utilize a thermal wand to anneal the edges to stable meniscal tissue. I then subsequently performed a chondroplasty to the unstable articular cartilage tissue to stable articular tissue with my chondroplasty with arthroscopic shaver and thermal wand. With arthroscopic probe inspected the root and this was intact.? This completed work in the lateral compartment. I performed a synovectomy of the lateral compartment. Next of the arthroscope was placed into the lateral gutter and this was free of loose bodies.? Finally I reintroduced the arthroscope into the patellofemoral compartment.? The patellofemoral was found to have grade III chondromalacia of the patellofemoral compartment. ?At this point I utilized arthroscopic shaver as well as thermal wand to perform extensive synovectomy of the patellofemoral compartment. I then subsequently utilized arthroscopic shaver and thermal wand to perform chondroplasty of the patellofemoral compartment to stable articular tissue. This completed my work of the patellofemoral space.? ? I then switch my portal sites to the medial working portal.? Completed the rest of my synovectomy and the rest of my examination arthroscopy was normal. Tourniquet was deflated hemostasis satisfactory.? All fluid was suctioned from the joint.?? All instruments were withdrawn.? Portal sites were closed with inte rrupted nylon suture.? portal sites were then covered with with Xeroform 4 x 4's ABD Curlex and Ganesh wrap.? Patient was then subsequently awakened from anesthesia and taken to PACU in stable condition. Disposition: Patient taken to PACU in stable condition recovering well.? Will receive appropriate discharge structure as well as pain medication postoperatively as well as DVT prophylaxis.we will have patient follow-up with us in the office in 2 weeks.? We will weightbearing as tolerated to the left lower extremity.? Patient understands and agrees with current plan.? All questions answered.
--- NOTE | 2022-08-06 11:47 | PM.OP2 ---
Brief Operative Note Date of procedure: 08/06/22 Pre-op diagnosis: Left knee medial meniscus tear Post-op diagnosis: same (Left knee extensive synovitis Left knee tricompartment chondromalacia Left knee medial and lateral meniscus tears) Procedure Done: Left knee diagnostic and surgical arthroscopy with partial medial meniscectomy Left knee diagnostic and surgical arthroscopy with partial lateral meniscectomy Left knee diagnostic and surgical arthroscopy with extensive synovectomy of medial, lateral and patellofemoral compartments Left knee diagnostic and surgical arthroscopy with chondroplasty of medial, lateral and patellofemoral compartments Surgeon: Ravinder Hargrove Estimated blood loss (mL): 2 Complications: None Post-op Plan: Patient taken to PACU in stable condition recovering well.? Will receive appropriate discharge structure as well as pain medication postoperatively as well as? DVT prophylaxis.we will have patient follow-up with us in the office in 2 weeks.? We will weightbearing as tolerated to the left lower extremity.? Patient understands and agrees with current plan.? All questions answered. Condition: stable Disposition: same day Coding Level of Care Code Acute Code for Jose F Mtz
--- NOTE | 2022-08-06 11:47 | PM.PACU ---
PACU note Narrative: Patient taken to PACU in stable condition pain controlled. Patient is able to wiggle toes plantarflex and dorsiflex ankle sensation intact light touch distally. Dressing on in place to left knee clean dry and intact. Toes warm well perfused distal pulses palpable. Exam: awake Disposition: discharged
--- NOTE | 2022-08-06 14:54 | ANE.PACU2 ---
Inpatient post-anesthesia follow up: Airway intact: Yes Vital signs: Temperature 98.0 F Pulse Rate 75 Respiratory Rate 16 Blood Pressure 130/61 Pulse Oximetry 96 Oxygen Delivery Me thod Nasal Cannula Oxygen Flow Rate 2 Fraction of Inspir ed Oxygen Hydration adequate: Yes Nausea and vomiting: No Pain level: 1 Mental status: Baseline
== END 2022-08-06 13:45 | disposition home or self-care (01) ==
PROVIDERS: PCP Registered Nurse; Visit Provider Student in an Organized Health Care Education/Training Program
PROC: (CPT 29870; principal; 2022-08-06 09:55)
PROC: (CPT 29876; 2022-08-06 09:55)
DX: S83.242A Other tear of medial meniscus, current injury, left knee, initial encounter (principal); X58.XXXA Exposure to other specified factors, initial encounter; J44.9 Chronic obstructive pulmonary disease, unspecified; G47.30 Sleep apnea, unspecified; Z99.81 Dependence on supplemental oxygen; I10 Essential (primary) hypertension; Z87.891 Personal history of nicotine dependence; M22.42 Chondromalacia patellae, left knee
CPT/HCPCS: 29876; 29880; J0131; J0690; J1100; J1885; J2405; J2704; J2795; J3010; J7030

== ENCOUNTER 2022-08-26 20:00 | Outpatient (CLI) | payer OTHER, SELFPAY | END 2022-08-26 20:01 | disposition home or self-care (01) | LOC: SLEEP 08-27 04:11 | PROVIDERS: PCP Registered Nurse; Visit Provider Internal Medicine Pulmonary Disease | DX: G47.19 Other hypersomnia (principal); R51.9 Headache, unspecified; E66.01 Morbid (severe) obesity due to excess calories; Z98.890 Other specified postprocedural states | CPT/HCPCS: 95810; 99024 ==

== ENCOUNTER → 2022-10-21 08:55 | Outpatient (BNVA) | payer OTHER, SELFPAY | PROVIDERS: PCP Registered Nurse; Visit Provider Nurse Practitioner Family | DX: J02.9 Acute pharyngitis, unspecified (principal) | CPT/HCPCS: 87880 ==

== ENCOUNTER → 2022-12-09 10:41 | Outpatient (BNVA) | payer MEDICARE, SELFPAY | PROVIDERS: PCP Registered Nurse; Visit Provider Internal Medicine Pulmonary Disease | DX: R06.09 Other forms of dyspnea (principal); Z87.891 Personal history of nicotine dependence; E66.01 Morbid (severe) obesity due to excess calories; R22.43 Localized swelling, mass and lump, lower limb, bilateral; Z99.81 Dependence on supplemental oxygen; G47.33 Obstructive sleep apnea (adult) (pediatric); Z68.41 Body mass index [BMI] 40.0-44.9, adult; Z86.16 Personal history of COVID-19 | CPT/HCPCS: 99214 ==

== ENCOUNTER 2023-01-01 10:57 | Outpatient (CLI) | payer MEDICARE, SELFPAY ==
--- NOTE | 2023-01-01 11:00 | MM_ITS ---
WS: [id number] SCREENING DIGITAL TOMOSYNTHESIS MAMMOGRAM WITH CAD HISTORY: SCREENING COMPARISON: 05/22/2021 and 02/03/2020 and 02/03/2018 Bilateral CC and MLO with tomosynthesis views submitted. Synthetic mammography reviewed. Computer aid ed detection analyzed. Breast composition: The breasts are heterogeneously dense, which may obscure small masses. No suspici ous masses, microcalcifications or architectural distortion. Scattered asymmetries in each breast are stable over multiple prior years. IMPRESSION: MM/[place] [id number] BI-RADS: 2-Benign FOLLOW UP: 1 Year Follow-up
== END 2023-01-01 10:58 | disposition home or self-care (01) ==
LOC: MOBLMAM 11:02
PROVIDERS: PCP Registered Nurse; Visit Provider Registered Nurse
DX: Z12.31 Encounter for screening mammogram for malignant neoplasm of breast (principal)
CPT/HCPCS: 77063; 77067

== ENCOUNTER → 2023-01-16 11:05 | Outpatient (BNVA) | payer MEDICARE, SELFPAY | PROVIDERS: PCP Registered Nurse; Visit Provider Registered Nurse | DX: Z23 Encounter for immunization (principal); I10 Essential (primary) hypertension; R73.03 Prediabetes; Z00.00 Encounter for general adult medical examination without abnormal findings | CPT/HCPCS: 80053; 80061; 83036; 85025 ==

== ENCOUNTER → 2023-02-03 11:43 | Outpatient (BNVA) | payer MEDICARE, SELFPAY | PROVIDERS: PCP Registered Nurse; Visit Provider Registered Nurse | DX: N39.0 Urinary tract infection, site not specified (principal) | CPT/HCPCS: 81000; 87077; 87086; 87184 ==

== ENCOUNTER → 2023-04-22 08:33 | Outpatient (BNVA) | payer MEDICARE, SELFPAY | PROVIDERS: PCP Registered Nurse; Visit Provider Student in an Organized Health Care Education/Training Program | DX: M94.262 Chondromalacia, left knee (principal); Z98.890 Other specified postprocedural states; M17.12 Unilateral primary osteoarthritis, left knee | CPT/HCPCS: 73560; 73565; 99213 ==

== ENCOUNTER 2023-05-15 09:43 | Outpatient (CLI) | payer MEDICARE, SELFPAY ==
--- NOTE | 2023-05-15 10:00 | CT_ITS ---
WS: [id number] LDCT LUNG CANCER SCREENING HISTORY: Cancer Screening TECHNIQUE: Axial imaging performed from the apices to 1 cm below the costophrenic angles. Coronal and sagittal reformats are submitted with axial MIP series. All CT scans at [facility] use at least one of these dose optimization techniques: automated exposure control; mA and/or kV adjustment per patient size (includes targeted exams where dose is matched to clinical indication); or iterativ e reconstruction. DLP: 121.51 mGy.cm DIvol: Mean CTDIvol: 3.30 (mGy) COMPARISON: 05/13/2022 Diagnostic quality: Satisfactory Lungs: Mild pulmonary hyperexpansion and paraseptal emphysema. No mass or nodule is identified. There is no pneumonia. No endobronchial lesions. Heart: Normal size heart with no pericardial effusion.. Other findings: Dilated pulmonary artery to 3.5 cm. Pulmonary artery is larger than the aorta. No per icardial or pleural effusions. Very mild atherosclerosis aorta. No adenopathy. Small hiatal hernia. M ild hepatic steatosis. Mild hyperplasia LEFT adrenal gland. Stable 11 mm cyst upper pole LEFT kidney. Scoliosis and increase in thoracic kyphosis. Advanced degenerative disc disease in the mid thoracic spine. IMPRESSION: CT/CT lung screening [id number] LUNG-RADS: 1S-Negative with Significant Findings FOLLOW UP: 12 Month: Continue annual screening with LDCT OTHER FINDINGS (S MODIFIER): Pulmonary hypertension.
== END 2023-05-15 09:44 | disposition home or self-care (01) ==
LOC: RAD 09:44
PROVIDERS: PCP Registered Nurse; Visit Provider Internal Medicine Pulmonary Disease
DX: Z87.891 Personal history of nicotine dependence (principal)
CPT/HCPCS: 71271

== ENCOUNTER → 2023-06-26 14:25 | Outpatient (BNVA) | payer MEDICARE, SELFPAY | PROVIDERS: PCP Registered Nurse; Visit Provider Physician Assistant | DX: M17.12 Unilateral primary osteoarthritis, left knee (principal) | CPT/HCPCS: 20610; 99213; J7318 ==

== ENCOUNTER → 2023-07-01 14:40 | Outpatient (BNVA) | payer MEDICARE, SELFPAY | PROVIDERS: PCP Registered Nurse; Visit Provider Internal Medicine Pulmonary Disease | DX: R06.09 Other forms of dyspnea (principal); I27.20 Pulmonary hypertension, unspecified; Z87.891 Personal history of nicotine dependence; E66.01 Morbid (severe) obesity due to excess calories; Z68.41 Body mass index [BMI] 40.0-44.9, adult; R22.43 Localized swelling, mass and lump, lower limb, bilateral; Z99.81 Dependence on supplemental oxygen; G47.33 Obstructive sleep apnea (adult) (pediatric) | CPT/HCPCS: 99214 ==

== ENCOUNTER 2023-07-14 11:42 | Outpatient (CLI) | payer MEDICARE, SELFPAY ==
--- NOTE | 2023-07-14 12:15 | USCV_ITS ---
Millicent Rubio Age: 68 Gender: F : 1955 Exam Date: 07/14/2023 12:09 Ordering Phys: Xander Bangura MD Technologist: MICAELA Exam Location: [facility] [place] Indication: Evaluate PAP , HTN, MR BP: 146 / 78 HR: 208 Rhythm: Sinus Technical Quality: Adequate MEASUREMENTS (Male / Female) Normal Values 2D ECHO LV Diastolic Diameter PLAX 4.5 cm 4.2 - 5.9 / 3.9 - 5.3 cm IVS Diastolic Thickness 1.0 cm 0.6 - 1.0 / 0.6 - 0.9 cm IVS Systolic Thickness 1.6 cm LVPW Diastolic Thickness 1.2 cm 0.6 - 1.0 / 0.6 - 0.9 cm LVPW Systolic Thickness 1.7 cm LVOT Diameter 2.1 cm LV Ejection Fraction 2D Teich 69.4 % LV Ejection Fraction MOD 2C 66.3 % LV Ejection Fraction 2C AL 67.8 % LA Diameter 3.2 cm RA Systolic Volume 4C AL 18.4 ml RA Systolic Volume 4C MOD 18.2 ml LA Sys Volume AL 29.9 cm cubed LA Sys Volume Index AL 13.6 cm cubed/m squared Aorta at Sinotubular Diameter 3.0 cm IVC Diameter 1.7 cm M-MODE LA Ao Ratio MM 1.7 AV Cusp Separation MM 1.1 cm DOPPLER AV Peak Velocity 178.0 cm/s LVOT Peak Velocity 127.0 cm/s AV Area Cont Eq vti 2.6 cm squared AV Area Cont Eq pk 2.4 cm squared MV Area PHT 4.4 cm squared Mitral E to A Ratio 1.2 TV Peak Velocity 114.5 cm/s TR Peak Velocity 152.0 cm/s TR Peak Gradient 9.2 mmHg TR Mean Velocity 111.0 cm/s TR Mean Gradient 5.7 mmHg TR Velocity Time Integral 26.3 cm Right Atrial Pressure 3.0 mmHg Pulmonary Artery Systolic Pressu 12.2 mmHg PV Peak Velocity 113.5 cm/s RV Ejection Time 0.3 s FINDINGS Left Ventricle Normal left ventricular size and systolic function, EF 67%.mild left ventricular hypertrophy. Grade I/IV diastolic dysfunction (abnormal relaxation filling pattern), normal to mildly elevated filling pressures. Right Ventricle The right ventricle is normal in size and function. Right Atrium The right atrium is normal in size. Left Atrium Mildly increased left atrial size. Mitral Valve Mild mitral annular calcification. Aortic Valve No gross abnormalities noted Tricuspid Valve Trace tricuspid valve regurgitation. Estimated pulmonary artery peak systolic pressure was 12 mmHg. This could be an underestimation because of the poor Doppler signals Pulmonic Valve Structurally normal pulmonic valve without significant stenosis. There is no pulmonic regurgitation. Pericardium Normal pericardium without effusion. Aorta Normal ascending aorta dimension. IVC Normal inferior vena cava. CONCLUSIONS Normal left ventricular size and systolic function, EF 67%.mild left ventricular hypertrophy. Grade I/IV diastolic dysfunction (abnormal relaxation filling pattern), normal to mildly elevated filling pressures. Mildly increased left atrial size. Mild mitral annular calcification. Trace tricuspid valve regurgitation. Estimated pulmonary artery peak systolic pressure was 12 mmHg. This could be an underestimation because of the poor Doppler signals. There is no pericardial effusion. There are no intracardiac masses. Compared to the study from 06/25/2022, there may not be a significant change. Consider right heart cath, to better evaluate the PA pressure, if clinically indicated Dr Vincent Reinoso MD FACC (Electronically Signed) Final Date: 16 July 2023 09:40 S
== END 2023-07-14 11:43 | disposition home or self-care (01) ==
LOC: RAD 11:43
PROVIDERS: PCP Registered Nurse; Visit Provider Internal Medicine Pulmonary Disease
DX: I10 Essential (primary) hypertension (principal)
CPT/HCPCS: 93306

== ENCOUNTER → 2023-09-04 09:47 | Outpatient (BNVA) | payer MEDICARE, SELFPAY | PROVIDERS: PCP Registered Nurse; Visit Provider Student in an Organized Health Care Education/Training Program | DX: M17.12 Unilateral primary osteoarthritis, left knee | CPT/HCPCS: 73560; 73565; 99214 ==

== ENCOUNTER → 2023-09-23 08:45 | Outpatient (BNVA) | payer MEDICARE, SELFPAY | PROVIDERS: PCP Registered Nurse; Visit Provider Student in an Organized Health Care Education/Training Program | DX: Z01.818 Encounter for other preprocedural examination (principal) | CPT/HCPCS: 80053; 81000; 85025 ==

== ENCOUNTER 2023-09-25 08:29 | Emergency (ER) | payer MEDICARE, SELFPAY ==
--- NOTE | 2023-09-25 08:33 | ECG_ITS ---
[facility] Test Date: 2023-09-25 Pat Name: Millicent Rubio Department: Room: Gender: Female Slip Caster: : 1955 Requested By: Gianfranco Gage Order Number: [id number] Isaac MD: Jim Dupree M.D. Measurements Intervals Wolverine Rate: 102 P: -17 IA: 107 QRS: 46 QRSD: 85 T: 50 QT: 325 QTc: 424 Interpretive Statements SINUS TACHYCARDIA WITH SHORT IA INTERVAL Compared to ECG 04/11/2022 10:03:02 Short IA interval now present Sinus rhythm no longer present Electronically Signed On 09-25-2023 10:59:44 CDT by Jim Dupree M.D. [id number] f
[2023-09-25 08:35] VITALS: BP 138/64; PULSE 113; TEMP 36.5; O2SAT 96; BMI 43.4
--- NOTE | 2023-09-25 08:47 | XRR_ITS ---
PROCEDURE INFORMATION: Exam: XR Chest Exam date and time: 09/25/2023 9:03 AM Age: 68 years old Clinical indication: Dyspnea; Patient HX: SOB; RT lower rib pain with deep inspiration; No known injury TECHNIQUE: Imaging protocol: Radiologic exam of the chest. Views: 1 view. COMPARISON: CT lung screening [id number] 05/15/2023 9:50 AM FINDINGS: Lungs: Unremarkable. No consolidation. Pleural spaces: Unremarkable. No pleural effusion. No pneumothorax. Heart/Mediastinum: Borderline cardiomegaly. Bones/joints: Unremarkable. XR/XR chest 1V portable [id number] IMPRESSION: No acute findings.
--- NOTE | 2023-09-25 08:47 | ED_ITS ---
HPI - Chest Pain 2 General: Chief Complaint: Chest Pain Stated Complaint: Right side rib pain Time Seen by Provider: 09/25/23 08:35 Source: patient Mode of arrival: ambulatory History of Present Illness: 68-year-old female presents emergency ro om complaining of right-sided rib pain worse with a deep breath. She has a history of COPD presents the pain began 4 days ago. She not had any fever sweats or chills or productive cough. No hemoptysis. No trauma or fall. Pain is reproducible with palpation as well as inspiration no fever sweats or chills complaint: chest pain Onset (ago): day(s) (4) Onset: during rest Pain location: right chest Pain radiation: none Quality: sharp Relieving factors: rest Exacerbating factors: inspiration and palpation Associated symptoms: Deny abdominal pain, diaphoresis, dyspnea, fever(s), leg edema, nausea, palpitations, sense of impending doom, syncope or vomiting Treatment prior to arrival: none Review of Systems 2 Const: Denies: fever(s) or diaphoresis Card: Reports: chest pain; Denies: palpitations or syncope Resp: Denies: dyspnea GI: Denies: abdominal pain, nausea or vomiting : Denies: dysuria, urinary frequency or urinary urgency Musc: Denies: neck pain or back pain Skin/Breast: Denies: rash PFSH ED 2 PFSH: Medical History Migraine Mitral valve regurgitation Aortic valve regurgitation On supplemental oxygen therapy Observed sleep apnea Prediabetes Chondromalacia, left knee Chronic diarrhea Chronic bilateral low back pain Obesity, morbid, BMI 40.0-49.9 Essential hypertension Depression Surgical History Hx of tonsillectomy Hx of appendectomy History of colon surgery 2009 Hx of hysterectomy 2009 Family History Other Cancer Diabetes Social History Smoking and tobacco/nicotine status: former use of tobacco/nicotine Quit status (tobacco/nicotine): has quit using Year quit tobacco: Mar 2009 Former quit date comment: 1ppd x 38 years Alcohol intake: never Substance/Drug Use: never Adopted: No Caregiver/support person: No Lives independently: No Sexually active: Yes Do you think of yourself as: Straight/Heterosexual Current gender identity: Female Physical Exam 2 Const: GENERAL APPEARANCE: cooperative and comfortable O RIENTATION/CONSCIOUSNESS: Yes awake, Yes oriented to person, Yes oriented to place and Yes oriented to time HENMT: COMMON NORMALS: normocephalic, atraumatic and hearing grossly normal bilaterally HEAD & SCALP: normocephalic and atraumatic Chest: OTHER: Reproducible point tenderness at the lower right lead ribs at the anterior axillary line no ecchymosis no rash Resp: COMMON NORMALS: normal respiratory effort, No retractions, No use of accessory muscles and clear to auscultation bilaterally AUSCULTATION: clear to auscultation bilaterally Cardio: COMMON NORMALS: regular rate, regular rhythm and No murmurs present (Cardio) RATE: regular rate RHYTHM: regular rhythm GI: COMMON NORMALS: Soft to palpation and No hepatosplenomegaly present A USCULTATION: Yes normoactive bowel sounds PALPATION: Yes Soft to palpation, No Tenderness to palpation present (GI), No Guarding due to palpation present (GI) and Yes No hepatosplenomegaly present Extremity: COMMON NORMALS: normal to inspection, capillary refill normal, no clubbing, cyanosis or edema, no calf tenderness and no pedal edema Neuro: SENSORIUM/ORIENTATION: Yes oriented to person, Yes oriented to place and Yes oriented to time Skin: COMMON NORMALS: no rashes or lesions noted GENERAL SKIN EXAM: no rashes or lesions noted Course 2 Vital Signs: Vital signs: Vital Signs Temperature 97.7 F 09/25/23 08:35 Pulse Rate 90 09/25/23 10:32 Respiratory Rate 17 09/25/23 10:00 Blood Pressure 164/82 09/25/23 10:00 Pulse Oximetry 97 09/25/23 10:32 Oxygen Delivery Me thod Nasal Cannula 09/25/23 10:00 Oxygen Flow Rate 2 09/25/23 10:00 MDM - Chest Pain Medical Decision Making Labs and imaging unremarkable. Pain is reproducible with inspiration and palpation. Treat as musculoskeletal EKG did not show any acute changes. Discharge home with anti-inflammatories follow-up with primary care return if changes or worsens Medical Records I reviewed the patient's medical records. Lab Data I reviewed the patient's lab results. 09/25/23 09:14 09/25/23 09:14 Radiology Impressions Chest X-Ray 09/25/23 08:47 IMPRESSION: No acute findings. Laboratory Results WBC 9.12 10^3/uL (3.29-11.43) 09/25/23 09:14 RBC 4.10 10^6/uL (3.85-5.65) 09/25/23 09:14 Hgb 12.60 g/dL (11.27-16.99) 09/25/23 09:14 Hct 40.1 % (36-47) 09/25/23 09:14 MCV 97.8 fl (85-98) 09/25/23 09:14 MCH 30.7 pg (27-33) 09/25/23 09:14 MCHC 31.4 g/dL (30-55) 09/25/23 09:14 RDW 13.1 % (12.1-15.1) 09/25/23 09:14 Plt Count 338 10^3/cmm (157-399) 09/25/23 09:14 MPV 9.6 fL (7.4-10.4) 09/25/23 09:14 Neut % (Auto) 77.4 % 09/25/23 09:14 Lymph % (Auto) 12.7 % 09/25/23 09:14 Glenn % (Auto) 6.6 % 09/25/23 09:14 Eos % (Auto) 2.6 % 09/25/23 09:14 Baso % (Auto) 0.3 % 09/25/23 09:14 Neut # (Auto) 7.05 10^3/uL (1.8-7.7) 09/25/23 09:14 Lymph # (Auto) 1.2 10^3/uL (0.8-4.8) 09/25/23 09:14 Glenn # (Auto) 0.6 10^3/uL (0.2-0.9) 09/25/23 09:14 Eos # (Auto) 0.2 10^3/uL (0.0-0.8) 09/25/23 09:14 Baso # (Auto) 0.0 10^3/uL (0.0-0.1) 09/25/23 09:14 Nucleated RBC % (auto) 0 % 09/25/23 09:14 Nucleated RBCs # 0.0 /100WBC 09/25/23 09:14 Sodium 136 mmol/L (136-145) 09/25/23 09:14 Potassium 4.6 mmol/L (3.5-5.1) 09/25/23 09:14 Chloride 97 mmol/L (98-107) L 09/25/23 09:14 Carbon Dioxide 30 mmol/L (22-29) H 09/25/23 09:14 Anion Gap 13.6 (5-19) 09/25/23 09:14 BUN 17 mg/dL (8-23) 09/25/23 09:14 Creatinine 0.7 mg/dL (0.5-0.9) 09/25/23 09:14 GFR Calculation 83.7 mL/min (90-130) L 09/25/23 09:14 Glucose 152 mg/dL (65-115) H 09/25/23 09:14 Calculated Osmolality 287 mOsm/kg (285-295) 09/25/23 09:14 Calcium 9.1 mg/dL (8.5-10.5) 09/25/23 09:14 Total Bilirubin 0.4 mg/dL (0.15-1.2) 09/25/23 09:14 AST 20 U/L (0-32) 09/25/23 09:14 ALT 27 U/L (0-33) 09/25/23 09:14 Alkaline Phosphatase 82 U/L (35-105) 09/25/23 09:14 Total Protein 7.2 g/dL (6.6-8.7) 09/25/23 09:14 Albumin 3.9 g/dL (3.5-5.2) 09/25/23 09:14 Globulin 3.3 g/dL (1.3-4.6) 09/25/23 09:14 Urine Color Yellow (Yellow) 09/25/23 Unknown Urine Appearance Slightly cloudy (CLEAR) 09/25/23 Unknown Urine pH 7 (5-7) 09/25/23 Unknown Ur Specific [place] 1.010 (1.005-1.030) 09/25/23 Unknown Urine Protein Neg (Negative) 09/25/23 Unknown Urine Glucose (UA) Norm (Normal) 09/25/23 Unknown Urine Ketones 1+ (Negative) H 09/25/23 Unknown Urine Blood Neg (Negative) 09/25/23 Unknown Urine Nitrate Negative (Negative) 09/25/23 Unknown Urine Bilirubin Neg (Negative) 09/25/23 Unknown Urine Urobilinogen Neg mg/dL (Negative) 09/25/23 Unknown Ur Leukocyte Esterase Trace (Negative) H 09/25/23 Unknown Urine RBC 0-4 /hpf (0-2) H 09/25/23 Unknown Urine WBC 5-10 /hpf (0-5) H 09/25/23 Unknown Ur Squamous Epith Cells 10-15 /hpf (0-5) H 09/25/23 Unknown Ur Transition Epith Cell 0-4 /hpf 09/25/23 Unknown Amorphous Sediment Not Reportable 09/25/23 Unknown Urine Bacteria 1+ /hpf (NONE) H 09/25/23 Unknown Hyaline Casts Rare /lpf 09/25/23 Unknown Urine Mucus 1+ /hpf 09/25/23 Unknown All radiology interpretation(s) finalized by discharge Discharge Plan Discharge Patient Disposition: Home Clinical Impression: Musculoskeletal chest pain Condition: Stable Prescriptions: New diclofenac sodium 75 mg tablet,delayed release (DR/EC) 75 mg PO Q12H PRN (Reason: pain) Qty: 20 0RF No Action Stiolto Respimat 2.5-2.5 mcg/actuation mist 2 puff inhalation DAILY Qty: 4 3RF tramadol 50 mg tablet 50 mg PO Q8H PRN (Reason: pain) 30 Days Qty: 30 3RF slbkwxzhlt-zimvkkjutdokb-wgcm [Esgic] 50-325-40 mg capsule 1 cap PO DAILY PRN (Reason: pain) 30 Days Qty: 15 5RF multivitamin Tablet 1 tab PO DAILY PRN (Reason: unknown) potassium chloride 10 mEq tablet extended release 10 meq PO QAM telmisartan 40 mg tablet 40 mg PO DAILY sertraline 25 mg tablet 25 mg PO DAILY bumetanide 1 mg tablet 1 mg PO DAILY spironolactone 50 mg tablet 50 mg PO DAILY Discharge Orders: Discharge ED (Routine); Ordered 09/25/23 Ordered By: Gianfranco Hayward Referrals: Mi Garcia, [facility] [Primary Care Provider] - Discharge Diet: Usual diet Discharge Activity: Increase activity as tolerated Patient Instructions: Opioid Safety, Pain Management Activity Restrictions/Additional Instructions: [facility]. It is very important that you follow up as instructed or that you return to the Emergency Department should you have concerns or if your condition changes or worsens in any way. You were seen in the [facility] emergency room with complaint of right lower chest pain. Laboratory studies were normal liver functions were normal chest x-ray was unremarkable EKG was normal. With your pain being reproducible with palpation and deep inspiration is found to be musculoskeletal. You can use diclofenac as needed. Coding Level of Care Code ED Nitrocellulose Maker for Jose F Mtz
[2023-09-25 09:24] LABS: Basophils % 0.3 %; Eosinophils # 0.2 10^3/uL (0.0-0.8); Eosinophils % 2.6 %; Hematocrit 40.1 % (36-47); Lymphocytes # 1.2 10^3/uL (0.8-4.8); Lymphocytes % 12.7 %; Mean Corpuscular HGB Conc 31.4 g/dL (30-55); Mean Corpuscular Hemoglobin 30.7 pg (27-33); Mean Corpuscular Volume 97.8 fl (85-98); Mean Platelet Volume 9.6 fL (7.4-10.4); Monocytes # 0.6 10^3/uL (0.2-0.9); Monocytes % 6.6 %; Neutrophils # 7.05 10^3/uL (1.8-7.7); Neutrophils % 77.4 %; Nucleated Red Blood Cells % 0 %; Platelet Count 338 10^3/cmm (157-399); Red Cell Distribution Width 13.1 % (12.1-15.1); White Blood Count 9.12 10^3/uL (3.29-11.43)
[2023-09-25 09:40] LABS: Albumin Level 3.9 g/dL (3.5-5.2); Alkaline Phosphatase 82 U/L (35-105); Anion Gap 13.6 (5-19); Aspartate Amino Transferase 20 U/L (0-32); Blood Urea Nitrogen 17 mg/dL (8-23); Calcium 9.1 mg/dL (8.5-10.5); Carbon Dioxide 30 mmol/L (22-29); Chloride 97 mmol/L (98-107); Creatinine Clr Calc Pharmacy 76.8891; Globulin 3.3 g/dL (1.3-4.6); Glomerular Filtration Rate 83.7 mL/min (90-130); Glucose 152 mg/dL (65-115); Osmolality Calculated 287 mOsm/kg (285-295); Potassium 4.6 mmol/L (3.5-5.1); Sodium 136 mmol/L (136-145); Total Bilirubin 0.4 mg/dL (0.15-1.2); Total Protein 7.2 g/dL (6.6-8.7)
[2023-09-25 09:50] LABS: Alanine Aminotransferase 27 U/L (0-33)
--- NOTE | 2023-09-25 09:51 | ECG_ITS ---
[facility] Test Date: 2023-09-25 Pat Name: Millicent Rubio Department: Room: Gender: Female Top Frame Maker: : 1955 Requested By: Gianfranco Gage Order Number: [id number] Isaac MD: Jim Dupree M.D. Measurements Intervals [place] Rate: 96 P: -17 NV: 114 QRS: 48 QRSD: 80 T: 56 QT: 325 QTc: 412 Interpretive Statements SINUS RHYTHM WITH SHORT NV INTERVAL Compared to ECG 09/25/2023 08:33:05 Sinus tachycardia no longer present Electronically Signed On 09-25-2023 20:20:45 CDT by Jim Dupree M.D. [email or web address]
[2023-09-25 10:00] VITALS: BP 164/82; PULSE 90; RESP 17; O2SAT 96
[2023-09-25 10:01] LABS: Glucose Urine UA Norm (Normal); Protein Urine Neg (Negative); Urine Appearance Slightly Cloudy (CLEAR); Urine Color Yellow (Yellow); pH Urine 7 (5-7)
[2023-09-25 10:02] LABS: Add Urine Microscopic? YES; Bilirubin Urine Neg (Negative); Blood Urine Neg (Negative); Ketones Urine 1+ (Negative); Leukocyte Esterase Urine Trace (Negative); Nitrate Urine Negative (Negative); Urobilinogen Urine Neg (Negative)
[2023-09-25 10:03] LABS: RBC Urine 0-4 /hpf (0-2)
[2023-09-25 10:04] LABS: Bacteria Urine 1+ /hpf; Hyaline Casts Urine RARE /lpf; Mucus Urine 1+ /hpf; Transitional Epi Cells Urine 0-4 /hpf
[2023-09-25 10:05] LABS: Add Urine Culture? No
[2023-09-25 10:32] VITALS: PULSE 90; O2SAT 97
== END 2023-09-25 10:33 | disposition home or self-care (01) ==
PROVIDERS: Emergency Provider Family Medicine; PCP Registered Nurse
DX: R07.89 Other chest pain (principal); Z87.891 Personal history of nicotine dependence; I10 Essential (primary) hypertension
CPT/HCPCS: 36415; 71045; 80053; 81001; 85025; 93005; 99285

== ENCOUNTER 2023-09-26 15:17 | Outpatient (CLI) | payer MEDICARE, SELFPAY ==
--- NOTE | 2023-09-26 15:30 | CT_ITS ---
WS: [id number] CT LEFT KNEE, NONCONTRAST [facility] TECHNIQUE: Noncontrast CT of the LEFT knee to include the LEFT hip and ankle. CLINICAL INFORMATION: M17.12 - Unilateral primary osteoarthritis, left knee COMPARISON: None. DLP: 959.[address] scans at [facility] use at least one of these dose optimization techniques: automated e xposure control; mA and/or kV adjustment per patient size (includes targeted exams where dose is matc hed to clinical indication); or iterative reconstruction. FINDINGS: Advanced tricompartment arthritis LEFT knee. Olrl-zc-thmh articulation in the medial joint compartmen t with subchondral sclerosis. Mild osteopenia. Small suprapatellar effusion. Hypertrophic changes rodney ng the joint line. Small amount of prepatellar and infrapatellar soft tissue edema. Partially visualized fat-containing umbilical hernia. Sigmoid diverticulosis. Degenerative arthritis bilateral sacroiliac joints with periarticular sclerosis. Degenerative changes of the pubic symphysis . CT/CT knee [facility] [id number] IMPRESSION: Images obtained for preoperative purposes.
== END 2023-09-26 15:18 | disposition home or self-care (01) ==
PROVIDERS: PCP Registered Nurse; Visit Provider Student in an Organized Health Care Education/Training Program
DX: M17.12 Unilateral primary osteoarthritis, left knee (principal); Z01.818 Encounter for other preprocedural examination; M85.862 Other specified disorders of bone density and structure, left lower leg; M25.462 Effusion, left knee
CPT/HCPCS: 73700

== ENCOUNTER → 2023-09-30 16:55 | Outpatient (BNVA) | payer MEDICARE, SELFPAY | PROVIDERS: PCP Registered Nurse; Visit Provider Family Medicine | DX: Z01.818 Encounter for other preprocedural examination (principal) | CPT/HCPCS: 81003 ==

== ENCOUNTER 2023-10-06 10:39 | Observation (INO) | payer MEDICARE, SELFPAY ==
[2023-10-06] VITALS (26 sets, daily range): BP systolic 76–142; BP diastolic 47–93; PULSE 64–126; RESP 14–20; TEMP 36.2–36.8; O2SAT 93–98
[2023-10-06] MEDS: lactated ringers 500 ML IV (06:17)
[2023-10-06] MEDS: sodium chloride 0.9% 1,000 ML 30 ML IV (06:20)
[2023-10-06] MEDS: acetaminophen 1,000 MG/100 ML PIGGYBACK 400 MG IV ×2 (06:22→15:28)
[2023-10-06] MEDS: scopolamine 1.5 Patch 1 PATCH TRANSDERMA (06:25)
[2023-10-06] MEDS: ketorolac 30 mg/mL INJ IVP (06:31)
--- NOTE | 2023-10-06 06:45 | P.ANESASSM_ITS ---
Pre-Anesthetic Assessment Height/Weight: Height 1.55 m Weight 106.141 kg Temp Pulse Resp BP Pulse Ox O2 Del Method O2 Flow Rate 97.1 F L 103 H 20 H 142/93 95 Nasal Cannula 2 10/06/23 06:04 10/06/23 06:04 10/06/23 06:04 10/06/23 06:04 10/06/23 06:04 10/06/23 06:04 10/06/23 06:04 Operation Date: 10/06/23 07:00 Proposed Procedures p Will Robot Total Knee Arthroplasty(Left) - Ravinder Hargrove DO Last intake: Intake Last Liquid Date 10/05/23 Last Liquid Time 23:00 Last Solid Date 10/05/23 Last Solid Time 18:30 Social No alcohol and No tobacco Exam alert, oriented x 3, clear to auscultation bilaterally and regular rate & rhythm Airway Submandibular: within normal limits Cervical ROM: within normal limits Mallampati: Class I Pulmonary Chronic Obstructive Pulmonary Disease and Sleep Apnea 2 liters oxygen CV/HEM Hypertension None reported Hepatic None reported GI None reported Musc/skel Lower Back Pain Neuropsych Anxiety Anesthetic Plan ASA status: 3 Anesthesia: Regional (specify below) Other: spinal with adductor canal block Medications/Allergies Home Medications Medication Instructions Recorded Confirmed Last Taken Type multivitamin 1 tab PO DAILY PRN unknown 04/11/22 10/03/23 09/26/23 History tiotropium 2.5 mcg-olodaterol 2.5 2 puff inhalation DAILY #4 grams 07/31/22 10/03/23 10/02/23 Rx mcg/actuation mist for inhalation (Stiolto Respimat) [id number]-lvvhyhqmfofhg-tepzxfnl 1 cap PO DAILY PRN pain 30 days 08/04/23 10/03/23 Unknown Rx 50 mg-325 mg-40 mg capsule (Esgic) #15 caps tramadol 50 mg tablet 50 mg PO Q8H PRN pain 30 days #30 08/04/23 10/03/23 10/02/23 Rx tabs bumetanide 1 mg tablet 1 mg PO DAILY 09/25/23 10/06/23 10/05/23 History potassium chloride 10 mEq 10 meq PO QAM 09/25/23 10/06/23 10/05/23 History tablet,extended release sertraline 25 mg tablet 25 mg PO DAILY 09/25/23 10/06/23 10/04/23 History spironolactone 50 mg tablet 50 mg PO DAILY 09/25/23 10/06/23 10/04/23 History telmisartan 40 mg tablet 40 mg PO DAILY 09/25/23 10/06/23 10/05/23 History Allergies Allergy/AdvReac Type Severity Reaction Status Date / Time codeine Allergy Unknown Verified 10/03/23 10:12 doxycycline Allergy Unknown Verified 10/03/23 10:12 Current Medications Generic Name Dose Route Start Last Admin Trade Name Gabriel PRN Reason Stop Dose Admin Lactated Ringer's 500 mls @ 500 mls/hr 10/06/23 05:49 10/06/23 06:17 Lactated Ringers IV 10/06/23 06:48 500 mls/hr .Q1H ONE Administration Sodium Chloride 1,000 mls @ 30 mls/hr 10/06/23 06:00 10/06/23 06:20 Sodium Chloride 0.9% IV 10/07/23 05:59 30 mls/hr .Q24H LUIS MANUEL Administration PFSH Anesthesia Medical History Migraine Mitral valve regurgitation Aortic valve regurgitation On supplemental oxygen therapy Observed sleep apnea Prediabetes Chondromalacia, left knee Chronic diarrhea Chronic bilateral low back pain Obesity, morbid, BMI 40.0-49.9 Essential hypertension Depression Surgical History Hx of tonsillectomy Hx of appendectomy History of colon surgery 2009 Hx of hysterectomy 2009 Family History Other Cancer Diabetes Social History Smoking and tobacco/nicotine status: former use of tobacco/nicotine Quit status (tobacco/nicotine): has quit using Year quit tobacco: Mar 2009 F cristinemer quit date comment: 1ppd x 38 years Alcohol intake: never Substance/Drug Use: never Adopted: No Caregiver/support person: No Lives independently: No Sexually active: Yes Do you think of yourself as: Straight/Heterosexual Current gender identity: Female Data Anesthesia Cardiac Studies: Echocardiogram 07/14/23
[2023-10-06 06:54] LABS: Basophils % 0.5 %; Eosinophils # 0.2 10^3/uL (0.0-0.8); Eosinophils % 2.7 %; Lymphocytes # 1.3 10^3/uL (0.8-4.8); Mean Corpuscular HGB Conc 32.1 g/dL (30-55); Mean Corpuscular Hemoglobin 30.7 pg (27-33); Mean Corpuscular Volume 95.7 fl (85-98); Mean Platelet Volume 9.5 fL (7.4-10.4); Monocytes # 0.6 10^3/uL (0.2-0.9); Monocytes % 7.2 %; Neutrophils # 5.87 10^3/uL (1.8-7.7); Neutrophils % 73.2 %; Nucleated Red Blood Cells % 0 %; Platelet Count 311 10^3/cmm (157-399); Red Blood Count 3.97 10^6/uL (3.85-5.65); Red Cell Distribution Width 13.1 % (12.1-15.1); White Blood Count 8.02 10^3/uL (3.29-11.43)
--- NOTE | 2023-10-06 07:00 | W.PM.OPSFHP ---
Same Day Surgery H&P Indication for Procedure/HPI DATE OF PROCEDURE: October 06, 2023 CHIEF COMPLAINT/INDICATIONFOR SURGICAL PROCEDURE: Left knee DJD PREOP DIAGNOSIS: Left knee DJD PLANNED PROCEDURE: Operation Date: 10/06/23 07:00 Proposed Procedures p Will Robot Total Knee Arthroplasty(Left) - Ravinder Hargrove DO Medications/Allergies* Home Medications Medication Instructions Recorded Confirmed Type multivitamin 1 tab PO DAILY PRN unknown 04/11/22 10/03/23 History bumetanide 1 mg tablet 1 mg PO DAILY 09/25/23 10/06/23 History potassium chloride 10 mEq 10 meq PO QAM 09/25/23 10/06/23 History tablet,extended release sertraline 25 mg tablet 25 mg PO DAILY 09/25/23 10/06/23 History spironolactone 50 mg tablet 50 mg PO DAILY 09/25/23 10/06/23 History telmisartan 40 mg tablet 40 mg PO DAILY 09/25/23 10/06/23 History Allergies/Adverse Reactions Allergy/AdvReac Type Severity Reaction Status Date / Time codeine Allergy Unknown Verified 10/03/23 10:12 doxycycline Allergy Unknown Verified 10/03/23 10:12 Current Medications: Generic Name Dose Route Start Last Admin Trade Name Freq PRN Reason Stop Dose Admin Sodium Chloride 1,000 mls @ 30 mls/hr 10/06/23 06:00 10/06/23 06:20 Sodium Chloride 0.9% IV 10/07/23 05:59 30 mls/hr .Q24H LUIS MANUEL Administration Pertinent History/Comorbid Conditions* Medical History (Updated 10/03/23 @ 00:01 by COSME Raphael) Migraine Mitral valve regurgitation Aortic valve regurgitation On supplemental oxygen therapy Observed sleep apnea Prediabetes Chondromalacia, left knee Chronic diarrhea Chronic bilateral low back pain Obesity, morbid, BMI 40.0-49.9 Essential hypertension Depression Surgical History (Updated 08/30/22 @ 23:23 by Ravinder Hargrove DO) Hx of tonsillectomy Hx of appendectomy History of colon surgery 2009 Hx of hysterectomy 2009 Family History (Updated 10/12/19 @ 09:59 by Kyle Farley LPN) Diabetes Cancer Social History Smoking and tobacco/nicotine status: former use of tobacco/nicotine Quit status (tobacco/nicotine): has quit using Year quit tobacco: Mar 2009 Former quit date comment: 1ppd x 38 years Alcohol intake: never Substance/Drug Use: never Adopted: No Caregiver/support person: No Lives independently: No Sexually active: Yes Do you think of yourself as: Straight/Heterosexual Current gender identity: Female Pertinent Exam Findings alert, oriented x 3, operative site marked and procedure specific exam findings Please refer to detailed orthopedic examination on 09/04/2023: EXAM NARRATIVE: left knee Incision sites well-healed no signs of infection no residual joint effusion noted. Patient is 0-115 ROM. Gross motor and sensory intact. Patient has tenderness to palpation over the medial joint line, stable varus valgus stress with 5 degrees varus correctable examination, no pain with hip range of motion crepitus underneath the patella knee range of motion as well as tenderness over the retropatellar space as well as mild tenderness palpation over the lateral joint line. Pain with Zak's examination. Recommendations Surgery/Procedure today Other Plans: Plan to proceed to the OR today for left total knee arthroplasty?robotic assisted Will. Patient understands and Zetts procedure risk benefits complication alternatives of surgery through shared decision make elects proceed with surgical intervention all questions been answered at this time. No change in health since last visit. Coding Level of Care Code Acute Code for Jose F Mtz
[2023-10-06] MEDS: ceFAZolin 2,000 MG in sodium chloride 0.9% (plus) 50 ML 100 MG IV ×2 (07:07→18:19)
[2023-10-06 07:11] LABS: Anion Gap 16.5 (5-19); Blood Urea Nitrogen 23 mg/dL (8-23); Calcium 8.8 mg/dL (8.5-10.5); Carbon Dioxide 26 mmol/L (22-29); Chloride 96 mmol/L (98-107); Creatinine Clr Calc Pharmacy 77.6819; Glomerular Filtration Rate 83.7 mL/min (90-130); Glucose 144 mg/dL (65-115); Osmolality Calculated 284 mOsm/kg (285-295); Potassium 4.5 mmol/L (3.5-5.1); Sodium 134 mmol/L (136-145)
[2023-10-06] MEDS: tranexamic acid 1,000 mg/10mL SDV 1000 MG IV (07:50)
--- NOTE | 2023-10-06 08:06 | ANES.PROC ---
Anesthesia Procedures Procedure/Date: 10/06/23 Nerve Block ^: Nerve Block 1: Main Anesthesia: spinal anesthesia block Nerve block location: adductor canal (left) Anesthesia monitors applied: pulse oximetry, EKG, BP cuff and oxygen Nerve block position: supine Anesthetic Used: ropivicaine 0.5% Amount of anesthesia used (mL): 30 Ultrasound used to: recognize landmarks Nerve Stimulator Used?: No Injection: neg aspiration of heme Patient Tolerated Procedure: well and no complications
[2023-10-06] MEDS: ROPivacaine 0.2% Premix 100 mL 200 MG INTRA-ARTI (08:14)
[2023-10-06] MEDS: tranexamic acid 1,000 mg/10mL SDV 1000 MG XX (08:14)
[2023-10-06] MEDS: ketorolac 30 mg/mL INJ XX (08:14)
[2023-10-06] MEDS: EPINEPHrine 1 mg/mL INJ XX (08:14)
[2023-10-06] MEDS: vancomycin 1,000 MG SDV 1000 MG XX (08:16)
--- NOTE | 2023-10-06 09:21 | W.PM.BPON ---
Date of Procedure: [10/06/2023] Surgeon: Ravinder Hargrove DO Vp Informatics(s): Charly Hargrove PA-C Procedure(s) performed: Left total knee arthroplasty?Will robotic assisted Findings of the procedure(s): Patient found to have left knee degenerative joint disease underwent procedure as planned without issues or complications. Estimated blood loss: 50 mL Specimen(s) removed: Tibia femur and patellar bone cuts removed Post-operative diagnosis: Left knee degenerative joint disease
--- NOTE | 2023-10-06 09:22 | P.OP_ITS ---
Operative Report Date of procedure: October 06, 2023 Surgeon: Ravinder Hargrove DO Agricultural Scientist: Charly Hargrove PA-C: PA was necessary for assistance in this case with leg positioning retraction and protection of neurovascular structures as well as assistance in implantation wound closure and dressing application. Procedure: Preoperative diagnosis: Left knee degenerative joint disease Post-op diagnosis: Same Procedure done: Left total knee arthroplasty, cemented?robotic assisted Will Implants: Daryn triathlon size 2 femur CR cemented?left [place] triathlon size? 2 tibia universal baseplate cemented [place] triathlon symmetric patella size 31 mm [place] triathlon polyethylene 10mm Surgeon: Ravinder Hargrove DO Estimated blood?loss: 50 mL Tourniquet 47 minutes IV fluids: 1000 mL Urine output: 100 mL Complications: None Condition: stable Disposition: floor Brief History: Patient is a 68-year-old female with with chronic?left knee degenerative joint disease.? Patient has been worked up in the outpatient setting in the orthopedic office at this point time through shared decision making given? [id number] arthritis as well as failed conservative treatment, and pt would?like to proceed with a?left total knee arthroplasty.? Through shared decision making elected to proceed with surgical intervention for?left total knee arthroplasty.? We talked about continued conservative treatment and surgical intervention as far as the risk benefits complications alternatives surgical and nonsurgical treatment options.? At this point time understanding patient risks with surgery pt agrees to proceed with surgical intervention.? Once again? risk with surgery include but are not?limited to make it better make it worse blood clot, heart attack, stroke, on the table, infection, injury to nerves or vessels, persistent pain, arthrofibrosis, implant failure.? Understanding these risks patient agrees to proceed with surgical intervention consent was obtained in the office.? All questions answered. Procedure: Patient was seen and evaluated in the preoperative holding area.? Consent was reviewed and signed with patient with plan for?left total knee arthroplasty.? All questions answered.? Correct extremity marked.? Patient seen and evaluated by the anesthesia department and once cleared for surgery was taken back to the operative suite.? Patient was placed into a supine position on the OR table.? All bony prominences were well-padded.? Patient was appropriately secured to the bed.? Patient underwent anesthesia per the anesthesia department.? Patient received spinal anesthesia and? Sandoval catheter was placed.? A nonsterile tourniquet was applied to the?left thigh.? At this point in time a final timeout performed.? Patient received appropriate preoperative antibiotics and TXA. Next the?left?lower extremity was then prepped and draped in standard orthopedic fashion. Esmarch tourniquet was used exsanguinate the?left?lower extremity.? Tourniquet was insufflated to 250 mmHg. A standard anterior incision was made over midline of the knee.? Sharp scalpel excision through skin and subcutaneous tissue full-thickness skin flaps were ma de.? Fascia was elevated off of the extensor retinaculum was stable with medial parapatellar arthrotomy was then made.? The performed standard sequential releases..? Immediately on entry into the joint patient was found to have severe eburnated bone and tricompartmental arthritic changes noted.? With significant osteophyte formation.? Next the the patella was then stuffed and the knee was then flexed.?? Devin was placed superiorly around the anterior aspect of the femur this was freed of synovium and I subsequently then placed by 2 femur pins to establish my femur arrays for the Will robot.? These were then placed bicortically and? femur array was then appropriately secured with appropriate visualization.? Next attention was turned towards the tibial rays.? These were then drilled hanny padilla bicortically in parallel fashion and intraincisional.? I then placed my guide as well as my tibial array on in place.? This was appropriately secured and had excellent visualization with the Will robot.? Next the tibial checkpoint as well as femur checkpoint were then placed.? At this point time I then subsequently established my head center as well as my medial?lateral malleoli as well as my checkpoints.? Next utilizing standard Will technology I then mapped out the appropriate points and confirmation points around the femur as well as the tibia in standard fashion.? Once this was then done I then removed all osteophytes in preparation for dynamic testing.? All osteophytes were removed as well as I removed the ACL and the PCL was excised due to its significant tearing and degeneration noted.? At this point time the knee was brought into full extension and we performed our standard evaluation of our gap balancing stressing his?ligaments and extension as well as flexion appropriate adjustments were made to have appropriate gap balancing in both flexion and extension.? This plan for final counts.? We get a preoperative plan evaluating our implants which was a size 2 femur and a size 2 tibia.? Next we brought in the Will robot and sequentially made our femur cuts.? All excess bony cuts were then removed.? Finally we made our tibial cut.? Once this was done a standard PCL retractor was then placed into this position I excised the medial and?lateral meniscus.? The tibial cut was then subsequently removed all excess bony debris was removed.? I then utilized a?lamina motor bus driver and remove the posterior osteophytes.? At this point time sized the tibia and confirmed this was a size 2.? I utilized our blunt probe to establish rotation of tibial implant.? Once this was done I then placed my tibia size 2 trial in appropriate position and then subsequently placed tibial pins to hold this into place placed a size 9 mm poly as well as a size 2 femur which was appropriately impacted in place knee was then subsequently brought into extension an small amount of play as well as just tightly slight laterally on flexion. At this point in time decision was made to release the popliteus given during flexion this was significant closing of the lateral compartment as a soft tissue release I isolated this with a tonsil and subsequently utilizing electrocautery release the popliteus this had excellent balance in my flexion gaps at this point in time I then brought into extension and placed a 10 mm poly and my 10 mm poly had excellent stability, this was stable with varus valgus stress in extension as well as had symmetrical translation when brought into flexion demonstrating symmetrical gaps. I had excellent balance gaps in flexion and extension with varus and valgus stresses.? At this point I was satisfied with these implants these were then verified and opened on the back table size 2 tibia, size 2 femur,? size 10 mm polythickness.? We did confirm appropriate gap balancing and stresses as well as alignment utilizing? Will and were satisfied with this plan.? ?At this point time with my trials in place I then towel clip the patella everted this made appropriate measurements subsequently utilizing freehand technique performed by patellar resurfacing this was confirmed to be appropriate resection and subsequently sized to be a 31 mm symmetric.? My drill peg guides were then clamped and appropriate position and appropriate position in the patella for appropriate tracking and parallel with the joint.? Pegs were drilled trial implant was placed and the knee was then subsequently ranged and found to have excellent patellar tracking.? Femur pegs were then drilled.? Satisfied with our tibial placement rotation I then utilized the keel punch and prepped the tibia.? At this point time all of our trial implants were removed.? All checkpoints as well as guidepins and arrays were removed and appropriate counts made.? The wound bed? was thoroughly irrigated and dried and prepped for cementation.? Cement was mixed on the back table.? Once cement was ready this was then covered onto the tibia and the tibial baseplate was then impacted and all excess cement was removed.? Next the polyethylene was then impacted into place on the tibial baseplate.? Next cement was placed onto the femur as well as under the femur implants and impacted in to place and all excess cement was extruded and removed.? Knee was taken into full extension? to clear all excess cement was removed.? Warm saline was placed over the joint.? I then towel clip patella and dried for cementation. cemented the patella into place.? This was all clamped and the cement was allowed to cure.? Thorough irrigation performed with pulse?lavage.? I then placed my periarticular injection while the cement was curing.? Once cured the knee was taken through range of motion and had excellent stability and gaps were balanced in flexion and extension.? Tourniquet was then deflated. hemostasis satisfactory with electrocautery.? Utilized vancomycin powder for infection prophylaxis within the joint as well as superficial subcutaneous tissue. Next I then subsequently closed the capsule with Ethibond suture as well as a running strata fix suture.? Knee was then taken through range of motion 30 times.? Next the skin was then closed in?layered fashion of running stratifix sutures of deep and subcutenous tissue and skin.? ?closed in flexion and Prineo glue was then placed over the incision this allowed to cure.? Incision was covered with mil, with ABDs soft roll and Ganesh wrap.? Patient was then awakened from anesthesia and taken to PACU in stable condition. Disposition: Patient taken to PACU in stable condition will be admitted to the floor for pain control PT/OT weight-bear as tolerated?left?lower extremity dressing changes as needed, DVT prophylaxis. Pain control. Patient will receive appropriate postoperative antibiotics. patient will be seen today by the internal medicine team for medical management.? Patient will follow up with the office in 2 weeks.? Patient understands agrees with current plan.? All questions answered.
--- NOTE | 2023-10-06 09:37 | XR_ITS ---
WS: [id number] KNEE LEFT TECHNIQUE: 2 views of the left knee CLINICAL INFORMATION: post L TKA FINDINGS: Expected postoperative changes LEFT TKA with patellar resurfacing. Postoperative edema with suprapate llar effusion. Hardware appears in good position. XR/XR knee LT 1-2V [id number] IMPRESSION: Normal postoperative LEFT TKA. Kellgren-Bossman Classification: grade 3 (moderate): moderate multiple osteoph ytes, definite narrowing of joint space and some sclerosis and possible deformi ty of bone ends
--- NOTE | 2023-10-06 09:47 | PM.PACU ---
PACU note Narrative: Patient is a 68-year-old female just underwent a left total knee arthroplasty. Pt transferred to PACU in stable condition. Dressing is dry. pt is awake and alert. pt can wiggle toes and plantarflex and dorsiflex foot. pt able to perform straight leg raise, Femoral nerve intact. Distal pulses are palpable toes are warm and well-perfused. Cap refill is normal and under 2 seconds. Sensation to foot is intact. Pain is controlled. Exam: awake Disposition: admitted
--- NOTE | 2023-10-06 09:55 | P.CONIM_ITS ---
Providers/Reason For Consult 2 Consulting Physician/Specialty*: Elliot Eid MD Reason for Consult*: Medical management Attending Physician: Ravinder Hargrove DO Primary Care Provider: ARLET Pascal History of Present Illness History of Present Illness Millicent Rubio is a 68 year old female who presented today for left total knee arthroplasty. Surgery went without complications and blood loss was about 50 cc. She is here for monitoring overnight, and will hopefully go home tomorrow morning. She carries a diagnosis of hypertension, chronic headaches, COPD, depression, aortic and mitral valve regurg. She reports no shortness of breath, chest discomfort, history of myocardial infarction, history of stroke. Review of Systems 2 General: Reports: 10 or more systems reviewed and unremarkable except in HPI and below Card: Denies: chest pain Resp: Denies: dyspnea Medications/Allergies Home Medications Medication Instructions Recorded Confirmed Last Taken Type multivitamin 1 tab PO DAILY PRN unknown 04/11/22 10/03/23 09/26/23 History tiotropium 2.5 mcg-olodaterol 2.5 2 puff inhalation DAILY #4 grams 07/31/22 10/03/23 10/02/23 Rx mcg/actuation mist for inhalation (Stiolto Respimat) [id number] 1 cap PO DAILY PRN pain 30 days 08/04/23 10/03/23 Unknown Rx 50 mg-325 mg-40 mg capsule (Esgic) #15 caps tramadol 50 mg tablet 50 mg PO Q8H PRN pain 30 days #30 08/04/23 10/03/23 10/02/23 Rx tabs bumetanide 1 mg tablet 1 mg PO DAILY 09/25/23 10/06/23 10/05/23 History potassium chloride 10 mEq 10 meq PO QAM 09/25/23 10/06/23 10/05/23 History tablet,extended release sertraline 25 mg tablet 25 mg PO DAILY 09/25/23 10/06/23 10/04/23 History spironolactone 50 mg tablet 50 mg PO DAILY 09/25/23 10/06/23 10/04/23 History telmisartan 40 mg tablet 40 mg PO DAILY 09/25/23 10/06/23 10/05/23 History Allergies Allergy/AdvReac Type Severity Reaction Status Date / Time codeine Allergy Unknown Verified 10/03/23 10:12 doxycycline Allergy Unknown Verified 10/03/23 10:12 Current Medications Generic Name Dose Route Start Last Admin Trade Name Freq PRN Reason Stop Dose Admin Sodium Chloride 1,000 mls @ 30 mls/hr 10/06/23 06:00 10/06/23 09:27 Sodium Chloride 0.9% IV 10/07/23 05:59 Infused .Q24H LUIS MANUEL Infusion PFSH Acute 2 PFSH: Medical History Migraine Mitral valve regurgitation Aortic valve regurgitation On supplemental oxygen therapy Observed sleep apnea Prediabetes Chondromalacia, left knee Chronic diarrhea Chronic bilateral low back pain Obesity, morbid, BMI 40.0-49.9 Essential hypertension Depression Surgical History Hx of tonsillectomy Hx of appendectomy History of colon surgery 2009 Hx of hysterectomy 2010 Family History Other Cancer Diabetes Social History Smoking and tobacco/nicotine status: former use of tobacco/nicotine Quit status (tobacco/nicotine): has quit using Year quit tobacco: Mar 2009 Former quit date comment: 1ppd x 38 years Alcohol intake: never Substance/Drug Use: never Adopted: No Caregiver/support person: No Lives independently: No Sexually active: Yes Do you think of yourself as: Straight/Heterosexual Current gender identity: Female Vitals/I&O/Wt Last Vital Signs Temp 97.1 F L 10/06/23 06:04 Pulse 103 H 10/06/23 06:04 Resp 20 H 10/06/23 06:04 BP 142/93 10/06/23 06:04 Pulse Ox 95 10/06/23 06:04 O2 Del Method Nasal Cannula 10/06/23 06:04 O2 Flow Rate 2 10/06/23 06:04 10/05/23 10/06/23 10/06/23 22:59 06:59 14:59 Intake Total 1550 / 1550 Balance 1550 / 1550 Weight last 48 hrs Weight 106.141 kg Physical Exam 2 Narrative: General exam demonstrates a pleasant and conversive female, in no apparent distress HEENT: Atraumatic normocephalic Neck is supple Cardiovascular regular rate and rhythm without murmur Lungs clear Abdomen is soft obese nontender Extremities no sinus clubbing or edema, dressing present left knee. She is able to dorsiflex her left foot without difficulty Skin no rash Neuro no obvious focal deficits Urinary Catheter Management: Sandoval: Cath Placed During This Visit: yes Urinary Catheter Date of Insertion: 10/06/23 Urinary Catheter Time of Insertion: 07:28 Data 10/06/23 06:48 10/06/23 06:48 Other Labs: EKG on 09/24 reviewed by me demonstrates sinus rhythm, normal axis, no acute changes. A&P Assessment and plan (1) Left knee DJD: She is directly postoperative left total knee arthroplasty CBC and BMP tomorrow, to monitor fluid status as well as postoperative anemia Eliquis is being used for DVT prophylaxis which is appropriate (2) Essential hypertension: Resume her home blood pressure medication. I have ordered this (3) COPD (chronic obstructive pulmonary disease): DuoNeb as needed Plan History of mitral and aortic valve regurgitation. Continue diuretics. I will reduce fluid tonight or tomorrow that is being given IV when appropriate. Hyperglycemia. Check TSH and hemoglobin A1c Likely sleep apnea. She reports she uses 2 L of oxygen at night. Will arrange. Thank you for this consultation, I will continue to follow along with you. Diagnoses Left knee DJD M17.12 Essential hypertension I10 COPD (chronic obstructive pulmonary disease) J44.9 Time Spent (min) 43
--- NOTE | 2023-10-06 10:37 | PC.NURSE ---
ANESTHESIOLOGIST EDUARDO ASSESSED PT AT PACU BAY REGARDING HR & BP. INSTRUCTED TO GIVE PT 250ML NS ADDITIONAL FROM NS HANGING VIA GRAVITY BEFORE TRANSFERRING PT TO FLOOR
--- NOTE | 2023-10-06 11:04 | PC.NURSE ---
CORINNE STAHL AT BEDSIDE IN OB, REPORT GIVEN. PT AOX4, NO COMPLAINTS OF PAIN. MOVING BILATERAL LOWER EXTREMITIES
[2023-10-06] MEDS: lactated ringers 1,000 ML 100 ML IV (11:15)
[2023-10-06] MEDS: oxyCODONE 5 mg IR Tab/Cap PO (11:59)
[2023-10-06 13:09] LABS: Thyroid Stimulating Hormone 1.66 uIU/mL (0.27-4.20)
[2023-10-06 13:11] LABS: Estmated Average Glucose 126
[2023-10-06] MEDS: ketorolac 30 mg/mL INJ 15 MG IVP ×2 (13:47→21:06)
[2023-10-06] MEDS: chlorhexidine gluconate 0.12% Btl 473 mL 30 ML MUCOUS MEM ×3 (13:48→20:57)
[2023-10-06] MEDS: tranexamic acid 1,000 MG/100 ML PREMIX 600 MG IV (13:48)
[2023-10-06] MEDS: calcium carb-vit d 600mg/400unit 1 Tablet 1 EACH PO (18:19)
[2023-10-06] MEDS: docusate sodium 100 mg Capsule PO (18:19)
[2023-10-06] MEDS: iron polysaccharide complex 150 mg Capsule PO (18:19)
[2023-10-06] MEDS: sennosides-docusate Tablet 2 TAB PO (18:19)
[2023-10-06] MEDS: mupirocin oint 22 gm 1 APPLIC NASAL (18:20)
--- NOTE | 2023-10-06 19:12 | PC.NURSE ---
1630 PT REQUESTED TO GET UP TO CHAIR, PATIENT DID GREAT. ICE PACK APPLIED TO LEFT KNEE AREA ONCE PATIENT GOT UP
--- NOTE | 2023-10-06 19:13 | PC.NURSE ---
1530 TOOK OVER PATIENT CARE FROM MARIBETH HATHAWAY RN AT THIS TIME.
[2023-10-07] MEDS: acetaminophen 1,000 MG/100 ML PIGGYBACK 400 MG IV ×2 (00:39→05:28)
[2023-10-07] MEDS: ceFAZolin 2,000 MG in sodium chloride 0.9% (plus) 50 ML 100 MG IV ×2 (01:47→07:47)
[2023-10-07 04:20] LABS: Basophils % 0.4 %; Eosinophils # 0.4 10^3/uL (0.0-0.8); Eosinophils % 3.9 %; Hematocrit 34.5 % (36-47); Lymphocytes # 0.8 10^3/uL (0.8-4.8); Lymphocytes % 8.4 %; Mean Corpuscular HGB Conc 31.3 g/dL (30-55); Mean Corpuscular Hemoglobin 30.9 pg (27-33); Mean Corpuscular Volume 98.6 fl (85-98); Mean Platelet Volume 9.5 fL (7.4-10.4); Monocytes # 0.7 10^3/uL (0.2-0.9); Neutrophils # 7.72 10^3/uL (1.8-7.7); Neutrophils % 79.9 %; Nucleated Red Blood Cells % 0 %; Platelet Count 285 10^3/cmm (157-399); Red Cell Distribution Width 13.3 % (12.1-15.1); White Blood Count 9.67 10^3/uL (3.29-11.43)
[2023-10-07 04:37] LABS: Anion Gap 16.7 (5-19); Blood Urea Nitrogen 24 mg/dL (8-23); Calcium 8.8 mg/dL (8.5-10.5); Carbon Dioxide 26 mmol/L (22-29); Chloride 98 mmol/L (98-107); Creatinine Clr Calc Pharmacy 69.0506; Glomerular Filtration Rate 62.6 mL/min (90-130); Glucose 137 mg/dL (65-115); Osmolality Calculated 288 mOsm/kg (285-295); Potassium 4.7 mmol/L (3.5-5.1); Sodium 136 mmol/L (136-145)
[2023-10-07 06:01] VITALS: BP 128/71; PULSE 84; RESP 18; TEMP 36.8; O2SAT 98
[2023-10-07] MEDS: sertraline 50 mg Tablet 25 MG PO (07:47)
[2023-10-07 07:48] VITALS: RESP 20
[2023-10-07] MEDS: calcium carb-vit d 600mg/400unit 1 Tablet 1 EACH PO (07:48)
[2023-10-07] MEDS: iron polysaccharide complex 150 mg Capsule PO (07:48)
[2023-10-07] MEDS: oxyCODONE 5 mg IR Tab/Cap PO (07:48)
[2023-10-07] MEDS: multivitamin therapeutic Tablet 1 TAB PO (07:48)
[2023-10-07] MEDS: apixaban 5 mg Tablet 2.5 MG PO (07:49)
[2023-10-07 07:50] VITALS: BP 120/60
[2023-10-07] MEDS: losartan 50 mg Tablet 100 MG PO (07:50)
[2023-10-07] MEDS: docusate sodium 100 mg Capsule PO (07:53)
[2023-10-07] MEDS: sennosides-docusate Tablet 2 TAB PO (07:53)
[2023-10-07 08:00] VITALS: BP 120/60; PULSE 91; RESP 18; TEMP 36.7; O2SAT 91
--- NOTE | 2023-10-07 08:41 | P.DS_ITS ---
Discharge Providers Date of Admission: 10/06/23 10:39 Date of Discharge: October 07, 2023 Attending Provider at Admission: Ravinder Anaya DO Attending Provider at Discharge: Ravinder Anaya DO Consults: Internal medicine Dr. Eid Primary Care Provider: ARLET Pascal Diagnoses at Discharge Discharge Diagnosis (1) Left knee DJD: Status: Resolved (2) Essential hypertension: Status: Chronic (3) COPD (chronic obstructive pulmonary disease): Status: Acute Reason for Visit Reason for Visit: M17.12 Brief History: Status post left TKA Hospital Course Hospital Course Patient presented to the preoperative holding area with plan for left total knee arthroplasty after patient has been worked up in the outpatient setting for failed conservative treatment of left knee degenerative joint disease. Once cleared by anesthesia for surgery patient subsequently was taken back to the operative suite underwent anesthesia per anesthesia department and then subsequently underwent a left total knee arthroplasty. Procedure was performed without any complications patient was taken to PACU in stable condition patient recovered well in PACU and then was admitted to the floor postoperatively internal medicine was consulted and on board for medical management and assistance with care. Patient received appropriate PT/OT, postoperative antibiotics, postoperative TXA, pain control, postoperative DVT prophylaxis. Elevation and ice. Patient encouraged for knee range of motion allowed weightbearing as tolerated to the operative lower extremity. Dressing was changed as needed, labs were monitored daily. Patient recovered well postopera tively and worked well and progressed well with therapy. It was determined on postoperative day [1] the patient was stable for discharge from an orthopedic standpoint and medicine. Patient was comfortable with discharge and plan was discharged home. Patient received appropriate discharge instructions as well as pain medication and DVT prophylaxis postoperatively. Given appropriate instructions for dressing management. Patient will follow-up with Dr. Anaya/orthopedics in the office in 2 weeks. All questions answered. Understand if there is any issues questions or concerns and contact the office. Physical Exam Narrative: Examination left knee dressings on in place clean dry and intact, patient able to wiggle toes plantarflex and dorsiflex ankle sensations intact light touch distally distal pulses are palpable calves are soft and nontender compartment soft and compressible normal postoperative swelling appreciated as well as some ecchymosis and bruising around the tourniquet location. Urinary Catheter Management: Sandoval: Cath Placed During This Visit: yes, but has since been removed by the nurse Reason for Continuing Indwelling Catheter: Other Urinary Catheter Date of Insertion: 10/06/23 Urinary Catheter Time of Insertion: 07:28 Date Urinary Catheter Removed: 10/06/23 Time Urinary Catheter Discontinued: 18:45 Discharge Data Studies Completed and Pending Completed Studies During Hospitalization Category Date Time Status XR knee LT 1-2V [id number] Routine Exams 10/06/23 09:37 Completed Pending at discharge Category Date Time Status Basic Metabolic Panel AM LABS Lab 10/08/23 04:00 Ordered Basic Metabolic Panel AM LABS Lab 10/09/23 04:00 Ordered Complete Blood Count w/Auto AM LABS Lab 10/08/23 04:00 Ordered Complete Blood Count w/Auto AM LABS Lab 10/09/23 04:00 Ordered Retype for Patiets ABO/Rh Routine Lab 10/06/23 08:02 Ordered Radiology Impressions Knee X-Ray 10/06/23 09:37 IMPRESSION: Normal postoperative LEFT TKA. Kellgren-Bossman Classification: grade 3 (moderate): moderate multiple osteophytes, definite narrowing of joint space and some sclerosis and possible deformity of bone ends Laboratory Results WBC 9.67 10^3/uL (3.29-11.43) 10/07/23 04:10 RBC 3.50 10^6/uL (3.85-5.65) L 10/07/23 04:10 Hgb 10.80 g/dL (11.27-16.99) L 10/07/23 04:10 Hct 34.5 % (36-47) L 10/07/23 04:10 MCV 98.6 fl (85-98) H 10/07/23 04:10 MCH 30.9 pg (27-33) 10/07/23 04:10 MCHC 31.3 g/dL (30-55) 10/07/23 04:10 RDW 13.3 % (12.1-15.1) 10/07/23 04:10 Plt Count 285 10^3/cmm (157-399) 10/07/23 04:10 MPV 9.5 fL (7.4-10.4) 10/07/23 04:10 Neut % (Auto) 79.9 % 10/07/23 04:10 Lymph % (Auto) 8.4 % 10/07/23 04:10 [place] % (Auto) 7.0 % 10/07/23 04:10 Eos % (Auto) 3.9 % 10/07/23 04:10 Baso % (Auto) 0.4 % 10/07/23 04:10 Neut # (Auto) 7.72 10^3/uL (1.8-7.7) H 10/07/23 04:10 Lymph # (Auto) 0.8 10^3/uL (0.8-4.8) 10/07/23 04:10 [place] # (Auto) 0.7 10^3/uL (0.2-0.9) 10/07/23 04:10 Eos # (Auto) 0.4 10^3/uL (0.0-0.8) 10/07/23 04:10 Baso # (Auto) 0.0 10^3/uL (0.0-0.1) 10/07/23 04:10 Nucleated RBC % (auto) 0 % 10/07/23 04:10 Nucleated RBCs # 0.0 /100WBC 10/07/23 04:10 Sodium 136 mmol/L (136-145) 10/07/23 04:10 Potassium 4.7 mmol/L (3.5-5.1) 10/07/23 04:10 Chloride 98 mmol/L (98-107) 10/07/23 04:10 Carbon Dioxide 26 mmol/L (22-29) 10/07/23 04:10 Anion Gap 16.7 (5-19) 10/07/23 04:10 BUN 24 mg/dL (8-23) H 10/07/23 04:10 Creatinine 0.9 mg/dL (0.5-0.9) 10/07/23 04:10 GFR Calculation 62.6 mL/min (90-130) L 10/07/23 04:10 Glucose 137 mg/dL (65-115) H 10/07/23 04:10 Estimat Average Glucose 126 10/06/23 06:48 Hemoglobin A1c 6.0 % (4.0-6.0) 10/06/23 06:48 Calculated Osmolality 288 mOsm/kg (285-295) 10/07/23 04:10 Calcium 8.8 mg/dL (8.5-10.5) 10/07/23 04:10 TSH 1.66 uIU/mL (0.27-4.20) 10/06/23 06:48 Blood Type O Positive 10/06/23 06:25 Rho(D) Type Rh positive 10/06/23 06:25 Antibody Screen Negative 10/06/23 06:25 Vitals Last Vital Signs Temp 98.2 F 10/07/23 06:01 Pulse 84 10/07/23 06:01 Resp 20 H 10/07/23 07:48 BP 120/60 10/07/23 07:50 Pulse Ox 98 10/07/23 06:01 O2 Del Method Room Air 10/07/23 06:01 O2 Flow Rate 2 10/06/23 21:08 Discharge Plan Discharge Patient Disposition: Home Condition: Stable Prescriptions: New Eliquis 2.5 mg tablet 2.5 mg PO BID 14 Days Qty: 28 0RF ondansetron 4 mg tablet,disintegrating 4 mg PO Q8H PRN (Reason: nausea and vomiting) 3 Days Qty: 9 0RF cephalexin 500 mg capsule 500 mg PO Q8H 7 Days Qty: 21 0RF oxycodone 5 mg tablet 5 mg PO Q6H PRN (Reason: pain postop) 7 Days Qty: 28 0RF Continued Stiolto Respimat 2.5-2.5 mcg/actuation mist 2 puff inhalation DAILY Qty: 4 3RF tramadol 50 mg tablet 50 mg PO Q8H PRN (Reason: pain) 30 Days Qty: 30 3RF [id number]-pzzazscahgtuf-pbxw [Esgic] 50-325-40 mg capsule 1 cap PO DAILY PRN (Reason: pain) 30 Days Qty: 15 5RF multivitamin Tablet 1 tab PO DAILY PRN (Reason: unknown) potassium chloride 10 mEq tablet extended release 10 meq PO QAM telmisartan 40 mg tablet 40 mg PO DAILY sertraline 25 mg tablet 25 mg PO DAILY bumetanide 1 mg tablet 1 mg PO DAILY spironolactone 50 mg tablet 50 mg PO DAILY Discharge Orders: Discharge Order (Routine); Ordered 10/07/23 Ordered By: Ravinder Anaya Other Ambulatory Orders: DME: Walker (Order) Location: None Selected Ordered By: Ravinder Anaya Physical Therapy Eval and Treat Outpatient (Order) Timeframe: 2 Weeks Facility: [facility] - Location: Physical Therapy Ordered By: Ravinder Anaya Referrals: [facility] [Outside] (The outpatient physical therapy department should call you with an appointment. If not heard from them by you can call [phone] option 1 to discuss Outpatient Physical therapy. ) Ravinder Anaya DO [Physician] - ([address] FOLLOW UP WITH DR. ANAYA IS October AT 0830.) Discharge Diet: Advance as tolerated Discharge Activity: Increase activity as tolerated and As per PT/OT instructions Patient Instructions: Acute Wound Care (DC), Total Knee Replacement (GEN), Opioid Safety, Post Anesthesia Care Activity Restrictions/Additional Instructions: Orthopedic discharge instructions Osiel Dressing--Keep dressing on and dry. After 3 days you can remove some of the dressing and shower. disconnect battery pack when showering. Osiel dressing will stay on until follow up appt in 2 weeks. The battery pack for the dressing will at 5-7 days. Battery pack can be removed and discarded once batteries . They replaced with a Silverlon dressing Patient may weight-bear as tolerate to the operative extremity Utilize crutches as needed Encourage knee range of motion Ice and elevate as needed for pain and swelling Take pain medication as prescribed Take antinausea medication as needed The prescribed Eliquis twice daily for the next 14 days for blood clot prevention May supplement for pain with ibuprofen [id number] as needed No baths or soaks Follow-up in the orthopedic office in 2 weeks Contact the office for any questions or concerns Discharge Attestations Time Spent in Discharge Care*: less than 30 min Quality Metrics Clinical Quality Measures [ No reported AMI, CVA or VTE this stay] Coding Level of Care Code Acute Code for Chg Fwd Diagnoses Left knee DJD M17.12 Essential hypertension I10 COPD (chronic obstructive pulmonary disease) J44.9 Time Spent (min) 25
--- NOTE | 2023-10-07 09:14 | P.PN_ITS ---
Subjective 2 Subjective: No events overnight. Up and walking on her leg. Pain is under control. Medications: Reviewed: Yes Vitals/I&O/Wt Last Vital Signs Temp 98.2 F 10/07/23 06:01 Pulse 84 10/07/23 06:01 Resp 20 H 10/07/23 07:48 BP 120/60 10/07/23 07:50 Pulse Ox 98 10/07/23 06:01 O2 Del Method Room Air 10/07/23 06:01 O2 Flow Rate 2 10/06/23 21:08 10/06/23 10/07/23 10/07/23 22:59 06:59 14:59 Intake Total 750 / 2750 150 / 2900 Output Total 400 / 650 Balance 350 / 2100 150 / 2250 Weight last 48 hrs Weight 106.141 kg Physical Exam 2 Narrative: General exam no distress Neck is supple Cardiovascular regular rate and rhythm without murmur Lungs clear Abdomen is soft obese nontender Extremities no sinus clubbing or edema, dressing present left knee. She is able to dorsiflex her left foot without difficulty Urinary Catheter Management: Sandoval: Cath Placed During This Visit: yes, but has since been removed by the nurse Reason for Continuing Indwelling Catheter: Other Urinary Catheter Date of Insertion: 10/06/23 Urinary Catheter Time of Insertion: 07:28 Date Urinary Catheter Removed: 10/06/23 Time Urinary Catheter Discontinued: 18:45 Data 10/07/23 04:10 10/07/23 04:10 A&P Assessment and plan (1) Left knee DJD: Postoperative day #1 left total knee arthroplasty Mild acute blood loss anemia. No need for any intervention Eliquis is being used for DVT prophylaxis which is appropriate (2) Essential hypertension: Resume her home blood pressure medication. I have ordered this (3) COPD (chronic obstructive pulmonary disease): DuoNeb as needed Plan History of mitral and aortic valve regurgitation. Hyperglycemia. Hemoglobin A1c 6, TSH normal Likely sleep apnea. She reports she uses 2 L of oxygen at night. Thank you for this consultation. Currently stable for discharge home Attestations 2 Medical Necessity Statement*: As per primary Diagnoses Left knee DJD M17.12 Essential hypertension I10 COPD (chronic obstructive pulmonary disease) J44.9 Time Spent (min) 21
[2023-10-07 11:30] VITALS: BP 106/61; PULSE 90; RESP 18; TEMP 36.9; O2SAT 91
[2023-10-07 11:55] VITALS: BP 106/61; PULSE 90; RESP 18; TEMP 36.9; O2SAT 91
== END 2023-10-07 11:55 | disposition home or self-care (01) ==
LOC: OBGYN 10:42
PROVIDERS: Internal Medicine; Physician Assistant; Admitting Provider Student in an Organized Health Care Education/Training Program; PCP Registered Nurse; Visit Provider Student in an Organized Health Care Education/Training Program
PROC: 8E0Y0CZ Robotic Assisted Procedure of Lower Extremity, Open Approach (ICD-10-PCS; CPT 27447; principal; 2023-10-06 07:00)
DX: M17.12 Unilateral primary osteoarthritis, left knee (principal); I10 Essential (primary) hypertension; J44.9 Chronic obstructive pulmonary disease, unspecified; I08.0 Rheumatic disorders of both mitral and aortic valves; R73.9 Hyperglycemia, unspecified; Z99.81 Dependence on supplemental oxygen; E66.01 Morbid (severe) obesity due to excess calories; Z68.41 Body mass index [BMI] 40.0-44.9, adult; F32.A Depression, unspecified; Z87.891 Personal history of nicotine dependence; G47.30 Sleep apnea, unspecified
CPT/HCPCS: 20985; 27447; 36415; 51702; 73560; 80048; 83036; 84443; 85025; 86850; 86900; 97110; 97116; 97161; 97165; C1776; G0378; J0131; J0171; J0690; J1885; J2250; J2371; J2405; J2704; J2795; J3010; J3370; J3490; J7030; J7120

== ENCOUNTER → 2023-10-28 10:25 | Outpatient (BNVA) | payer MEDICARE, SELFPAY | PROVIDERS: PCP Registered Nurse; Visit Provider Student in an Organized Health Care Education/Training Program | DX: Z96.652 Presence of left artificial knee joint (principal) | CPT/HCPCS: 73560; 73565; 99024 ==

== ENCOUNTER → 2023-12-09 15:35 | Outpatient (BNVA) | payer MEDICARE, SELFPAY | PROVIDERS: PCP Registered Nurse; Visit Provider Student in an Organized Health Care Education/Training Program | DX: Z96.652 Presence of left artificial knee joint (principal) | CPT/HCPCS: 73560; 73565; 99213 ==

== ENCOUNTER → 2024-01-22 11:31 | Outpatient (BNVA) | payer MEDICARE, SELFPAY | PROVIDERS: PCP Registered Nurse; Visit Provider Registered Nurse | DX: Z13.6 Encounter for screening for cardiovascular disorders (principal); Z13.1 Encounter for screening for diabetes mellitus | CPT/HCPCS: 80053; 83036; 85025 ==

== ENCOUNTER 2024-02-06 13:44 | Outpatient (CLI) | payer MEDICARE, SELFPAY ==
--- NOTE | 2024-02-06 13:56 | MM_ITS ---
WS: [id number] Bilateral screening 3D tomosynthesis digital mammogram, 02/06/2024 1:56 PM Clinical Data: SCREENING Comparison: 01/01/2023, 05/22/2021, 02/03/2020, 01/21/2019. Findings: No spiculated masses or clustered calcifications are seen. There are no secondary signs of carcinoma . MM/MM scr BI tomosynthesis [id number] Impression: Negative bilateral mammogram unchanged. Recommend annual screening mammograms. BIRADS: 1 - Negative FOLLOW UP: 1 Year Follow-up DENSITY: The breasts are heterogeneously dense, which may obscure small masses. The CAD coat checker was used
--- NOTE | 2024-02-06 14:00 | XR_ITS ---
WS: [id number] SCREENING DEXA SCAN [employer] CLINICAL INFORMATION: M81.0 - Age-related osteoporosis without current patholog... COMPARISON: None. FINDINGS: The L1-L4 bone mineral density measures 0.896 g/cm2. This corresponds to a T score score of -2.4 and Z score of -1.9. Left femoral neck bone mineral density measures 0.947 g/cm2. This corresponds to a T score of -0.5 an d Z score of 0.0. Right femoral neck bone mineral density measures 0.957 g/cm2. This corresponds to a T score -0.4of an d Z score of 0.0. Mean femoral neck bone mineral density measures 0.952 g/cm2. This corresponds to a T score of -0.4 an d Z score of 0.0. XR/XR DEXA axial skeleton* [id number] IMPRESSION: Osteopenia lumbar spine upper end of the range. Normal bone mineralization femo ral necks. Patient's FRAX calculated 10 year probability for major osteoporotic fracture i s 8.8% and osteoporotic hip fracture is 1.1%.
== END 2024-02-06 13:45 | disposition home or self-care (01) ==
LOC: RAD 13:44
PROVIDERS: PCP Registered Nurse; Visit Provider Registered Nurse
DX: Z12.31 Encounter for screening mammogram for malignant neoplasm of breast (principal); Z13.820 Encounter for screening for osteoporosis; M85.80 Other specified disorders of bone density and structure, unspecified site
CPT/HCPCS: 77063; 77067; 77080

== ENCOUNTER → 2024-03-02 07:48 | Outpatient (BNVA) | payer MEDICARE, SELFPAY | PROVIDERS: PCP Registered Nurse; Visit Provider Physician Assistant | DX: Z98.890 Other specified postprocedural states (principal); Z96.652 Presence of left artificial knee joint; S89.92XA Unspecified injury of left lower leg, initial encounter; W19.XXXA Unspecified fall, initial encounter | CPT/HCPCS: 73560; 73565; 99213 ==

== ENCOUNTER → 2024-03-30 13:48 | Outpatient (BNVA) | payer MEDICARE, SELFPAY | PROVIDERS: PCP Registered Nurse; Visit Provider Registered Nurse | DX: J06.9 Acute upper respiratory infection, unspecified (principal) | CPT/HCPCS: 87400; 87426 ==

== ENCOUNTER → 2024-04-19 11:19 | Outpatient (BNVA) | payer MEDICARE, SELFPAY | PROVIDERS: PCP Registered Nurse; Visit Provider Registered Nurse | DX: E11.9 Type 2 diabetes mellitus without complications (principal) | CPT/HCPCS: 80048; 81000; 83036 ==

== ENCOUNTER → 2024-06-16 08:33 | Outpatient (BNVA) | payer MEDICARE, SELFPAY | PROVIDERS: PCP Registered Nurse; Visit Provider Student in an Organized Health Care Education/Training Program | DX: Z98.890 Other specified postprocedural states (principal); Z96.652 Presence of left artificial knee joint | CPT/HCPCS: 73560; 73565; 99213 ==

== ENCOUNTER → 2025-01-27 10:08 | Outpatient (BNVA) | payer MEDICARE, SELFPAY | PROVIDERS: PCP Registered Nurse; Visit Provider Registered Nurse | DX: E11.9 Type 2 diabetes mellitus without complications (principal); I10 Essential (primary) hypertension | CPT/HCPCS: 80053; 80061; 83036; 85025 ==

== ENCOUNTER 2025-02-21 10:38 | Outpatient (CLI) | payer MEDICARE, SELFPAY ==
--- NOTE | 2025-02-21 11:00 | CT_ITS ---
WS: [id number] LDCT LUNG CANCER SCREENING TECHNIQUE: Noncontrast CT of the chest with coronal and sagittal reformatted images. CLINICAL INFORMATION: Z87.891 - Personal history of nicotine dependence COMPARISON: 2023 DLP: 112.42 mGy.cm DIvol: Mean CTDIvol: 2.90 (mGy) All CT scans at [facility] use at least one of these dose optimization techniques: automated exposure control; mA and/or kV adjustment per patient size (includes targeted exams where dose is matched to clinical indication); or iterative reconstruction. FINDINGS: Mild chronic emphysematous changes. Small RIGHT perifissural nodule. Tiny nodule RIGHT upper lobe anteriorly. Tiny nodule LEFT upper lobe. No new suspicious pulmonary parenchymal abnormalities. Fatty liver. Hepatomegaly. Small esophageal hiatal hernia. Mild thickening LEFT adrenal gland. RIGHT adrenal gland appears normal. Partially visualized LEFT renal cyst. CT/CT lung screening [id number] IMPRESSION: LUNG-RADS: 2-Benign Appearance or Behavior FOLLOW UP: 12 Month: Continue annual screening with LDCT
== END 2025-02-21 10:39 | disposition home or self-care (01) ==
LOC: RAD 10:38
PROVIDERS: PCP Registered Nurse; Visit Provider Registered Nurse
DX: Z12.2 Encounter for screening for malignant neoplasm of respiratory organs (principal); Z87.891 Personal history of nicotine dependence; K44.9 Diaphragmatic hernia without obstruction or gangrene; K76.0 Fatty (change of) liver, not elsewhere classified; E27.9 Disorder of adrenal gland, unspecified; N28.1 Cyst of kidney, acquired
CPT/HCPCS: 71271

== ENCOUNTER → 2025-03-07 11:47 | Outpatient (BNVA) | payer MEDICARE, SELFPAY | PROVIDERS: PCP Registered Nurse; Visit Provider Registered Nurse | DX: J06.9 Acute upper respiratory infection, unspecified (principal) | CPT/HCPCS: 85025; 87400; 87426 ==